=== PATIENT | female | born 1970 | race African-American/Black ===

== ENCOUNTER 2018-01-26 11:11 | Emergency (ER) | payer SELFPAY ==
[~2018-01-26] VITALS: Ht 149.9 cm; Wt 48.0 kg
[2018-01-26 11:30] VITALS: BP 132/58; PULSE 96; RESP 18; TEMP 98.5; O2SAT 100
[2018-01-26] MEDS ORDERED: FERR325T18 PO (11:57)
--- NOTE | 2018-01-26 12:45 | PD ---
HPI Chief Complaint: Cold / Flu Symptoms Time Seen by Provider: 11:56 Travel History International Travel<30 days: No Contact w/Intl Traveler<30days: No Traveled to known affect area: No History of Present Illness HPI Patient 47-year-old female presents emergency department for evaluation of fatigue and feeling hot. Denies any chest pain shortness breath abdominal pain nausea vomiting. States she was going to work today and got rained on this and the symptoms started. She denies any respiratory symptoms denies any cough congestion. Denies any dysuria vaginal discharge or vaginal bleeding. No history of diabetes or HIV. PFSH Past Medical History Anemia: Yes Reproductive: Yes (fibroid tumor) Influenza Vaccination: No ?: Not LMP: 01/26/18 Tubal Ligation: Yes Social History Alcohol Use: No Tobacco Use: No Substance Use: No Allergies-Medications (Allergen,Severity, Reaction): Coded Allergies: No Known Allergies (Unverified , 01/26/18) Reported Meds & Prescriptions Reported Meds & Active Scripts Active Reported Ferrous Sulfate 325 Mg (65 Mg Iron) Tablet 325 Mg PO DAILY Review of Systems Except as stated in HPI: all other systems reviewed are Neg Physical Exam Narrative GENERAL: Well-developed well-nourished no obvious appears well and nontoxic SKIN: Focused skin assessment warm/dry. No rash no HEAD: Atraumatic. Normocephalic. EYES: Pupils equal and round. No scleral icterus. No injection or drainage. ENT: No nasal bleeding or discharge. Mucous membranes pink and moist. TMs clear bilaterally, oropharynx clear moist NECK: Trachea midline. No JVD. CARDIOVASCULAR: Regular rate and rhythm. No murmur appreciated. RESPIRATORY: No accessory muscle use. Clear to auscultation. Breath sounds equal bilaterally. GASTROINTESTINAL: Abdomen soft, non-tender, nondistended. Hepatic and splenic margins not palpable. MUSCULOSKELETAL: No obvious deformities. No clubbing. No cyanosis. No edema. NEUROLOGICAL: Awake and alert. No obvious cranial nerve deficits. Motor grossly within normal limits. Normal speech. PSYCHIATRIC: Appropriate mood and affect; insight and judgment normal. Data Data Last Documented VS Vital Signs Date Time Temp Pulse Resp B/P (MAP) Pulse Ox O2 Delivery O2 Flow Rate FiO2 01/26/18 11:30 98.5 96 18 132/58 (82) 100 Orders Orders Chest, Pa & Lat (01/26/18 ) Ed Discharge Order (01/26/18 13:15) [facility] Medical Decision Making Medical Screen Exam Complete: Yes Emergency Medical Condition: Yes Differential Diagnosis Perimenopausal symptoms, hot flashes, influenza unlikely given the time of year , pneumonia, UTI unlikely given lack of symptoms per Narrative Course Patient room to the emergency department, she appears well in obvious distress. Chest x-ray negative, is no indication further workup of the patient at this time, she stable for discharge, discussed following up with her primary care physician in the [facility] Diagnosis Primary Impression: Viral syndrome Referrals: [facility] Med/Other Pt SpecificInfo: Prescription(s) given Disposition: DISCHARGE HOME Condition: Stable Aldo Karimi MD January 26, 2018 12:45
--- NOTE | 2018-01-26 13:11 | RADRPT ---
EXAM DATE: 01/26/2018 1:08 PM EDT AGE/SEX: 47 years / Female INDICATIONS: Cough. CLINICAL DATA: This is the patient's initial encounter. Patient reports that signs and symptoms have been present for 1 day and indicates a pain score of 9/10. MEDICAL/SURGICAL HISTORY: None. None. COMPARISON: No prior [place] exams available for comparison. FINDINGS: PA and lateral views of the chest demonstrate the lungs to be symmetrically aerated without evidence of mass, infiltrate or effusion. Bilateral nipple shadows are demonstrated. The cardiomediastinal con tours are unremarkable. Osseous structures are intact. CONCLUSION: No acute intrathoracic disease. Electronically signed by: Manish Chan MD 01/26/2018 1:10 PM EDT
== END 2018-01-26 14:12 | disposition home or self-care (01) ==
LOC: NEPD 11:11
DX: B34.9 Viral infection, unspecified (principal)
CPT/HCPCS: 71046; 99283

== ENCOUNTER 2018-01-27 10:55 | Inpatient (IN) | payer SELFPAY ==
[~2018-01-27] VITALS: Ht 149.9 cm; Wt 51.0 kg
[2018-01-27] VITALS (13 sets, daily range): BP systolic 110–138; BP diastolic 56–71; PULSE 66–94; RESP 12–20; TEMP 97.9–99.1; O2SAT 98–100
[~2018-01-27 10:55] MED LIST: FERR325T18 PO
[2018-01-27 11:43] LABS: AUTOMATED NEUTROPHIL # 0.8 TH/MM3 (1.8-7.7); BASOPHIL # 0.1 TH/MM3 (0-0.2); BASOPHIL % 5.2 % (0.0-2.0); EOSINOPHIL % 1.1 % (0.0-4.0); LYMPH % 46.1 % (9.0-44.0); MEAN CELL VOLUME 50.7 FL (80.0-100.0); MEAN CORPUSCULAR HEMOGLOBIN 12.9 PG (27.0-34.0); MONO % 10.5 % (0.0-8.0); MONOCYTE # 0.2 TH/MM3 (0-0.9); NEUT % 37.1 % (16.0-70.0); RED BLOOD COUNT 2.35 MIL/MM3 (4.00-5.30); RED CELL DISTRIBUTION WIDTH 28.7 % (11.6-17.2); WHITE BLOOD COUNT 2.1 TH/MM3 (4.0-11.0)
[2018-01-27 11:49] LABS: MEAN CORPUSCULAR HGB CONC 25.5 % (32.0-36.0)
[2018-01-27 11:55] LABS: HEMATOCRIT 11.9 % (35.0-46.0); MEAN PLATELET VOLUME 8.6 FL (7.0-11.0); PLATELET COUNT 79 TH/MM3 (150-450)
--- NOTE | 2018-01-27 12:07 | RADRPT ---
EXAM DATE: 01/27/2018 11:59 AM EDT AGE/SEX: 47 years / Female INDICATIONS: Sharp pain in mid chest on inspiration CLINICAL DATA: This is the patient's initial encounter. Patient reports that signs and symptoms have been present for 1 day and indicates a pain score of 2/10. MEDICAL/SURGICAL HISTORY: None. Hysterectomy. COMPARISON: [facility], CHEST PA & LAT, 01/26/2018. . FINDINGS: PA and lateral views of the chest demonstrate the lungs to be symmetrically aerated without evidence of mass, infiltrate or effusion. The cardiomediastinal contours are unremarkable. Scoliosis. Osseous structures are intact. CONCLUSION: No acute cardiopulmonary disease. Electronically signed by: Solomon Ascencio MD 01/27/2018 12:05 PM EDT
[2018-01-27] MEDS ORDERED: SODIUM CHLOR 0.9% 250 ML INJ 250 ML IV ONE ×2 (12:15→14:00)
[2018-01-27 12:16] LABS: BICARBONATE 22.4 MEQ/L (21.0-32.0); BLOOD UREA NITROGEN 8 MG/DL (7-18); CHLORIDE 111 MEQ/L (98-107); CREATININE 0.56 MG/DL (0.50-1.00); GLOMERULAR FILTRATION RATE 139 ML/MIN (>89); GLUCOSE,RANDOM 89 MG/DL (74-106); SODIUM (NA) 142 MEQ/L (136-145)
[2018-01-27 12:23] LABS: TROPONIN I LESS THAN 0.02 NG/ML (0.02-0.05)
--- NOTE | 2018-01-27 12:23 | PD ---
HPI Chief Complaint: Cold / Flu Symptoms Time Seen by Provider: 12:06 Travel History International Travel<30 days: No Contact w/Intl Traveler<30days: No Traveled to known affect area: No History of Present Illness HPI Patient 47-year-old female seen and examined by me yesterday for very vague complaints return to the emergency department for similar complaints today adding chest pain. She states that she is just been feeling very fatigued recently for the past day and a half or so. States he has a history of anemia. On further history patient states is similar symptoms happened to her about 5 years ago she was admitted to an outside facility was diagnosed with severe anemia and had to have CAT scan as well as HIV testing all of which were negative. She states she never had a bone marrow biopsy however. She denies any fevers denies any nausea vomiting abdominal pain. 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 She is unsure as to what the etiology behind the tumor was but from what she describes as possibly an ovarian cyst. States symptoms are moderate, for the past 2 days, constant, associated signs symptoms in context as abov. PFSH Past Medical History Anemia: Yes Reproductive: Yes (fibroid tumor) Tubal Ligation: Yes Social History Alcohol Use: No Tobacco Use: No Substance Use: No Allergies-Medications (Allergen,Severity, Reaction): Coded Allergies: No Known Allergies (Unverified , 01/26/18) Reported Meds & Prescriptions Reported Meds & Active Scripts Active Reported Ferrous Sulfate 325 Mg (65 Mg Iron) Tablet 325 Mg PO DAILY Review of Systems Except as stated in HPI: all other systems reviewed are Neg Physical Exam Narrative GENERAL: Well-developed well-nourished no obvious, thin SKIN: Focused skin assessment warm/dry. Dark complexion but there is some pallor of the nailbeds and conjunctival pallor. HEAD: Atraumatic. Normocephalic. EYES: Pupils equal and round. No scleral icterus. No injection or drainage. ENT: No nasal bleeding or discharge. Mucous membranes pink and moist. NECK: Trachea midline. No JVD. CARDIOVASCULAR: Regular rate and rhythm. No murmur appreciated. RESPIRATORY: No accessory muscle use. Clear to auscultation. Breath sounds equal bilaterally. GASTROINTESTINAL: Abdomen soft, non-tender, nondistended. Hepatic and splenic margins not palpable. MUSCULOSKELETAL: No obvious deformities. No clubbing. No cyanosis. No edema. NEUROLOGICAL: Awake and alert. No obvious cranial nerve deficits. Motor grossly within normal limits. Normal speech. PSYCHIATRIC: Appropriate mood and affect; insight and judgment normal. Data Data Last Documented VS Vital Signs Date Time Temp Pulse Resp B/P (MAP) Pulse Ox O2 Delivery O2 Flow Rate FiO2 01/27/18 13:02 100 Room Air 01/27/18 13:02 71 16 117/57 (77) 01/27/18 11:02 99.1 Orders Orders Electrocardiogram (01/27/18 11:19) Complete Blood Count With Diff (01/27/18 11:19) Basic Metabolic Panel (Bmp) (01/27/18 11:19) Ckmb (Isoenzyme) Profile (01/27/18 11:19) Troponin I (01/27/18 11:19) Iv Access Insert/Monitor (01/27/18 11:19) Ecg Monitoring (01/27/18 11:19) Oxygen Administration (01/27/18 11:19) Oximetry (01/27/18 11:19) Chest, Pa & Lat (01/27/18 11:19) Type And Screen (01/27/18 12:07) Red Blood Cells (Rbc) (01/27/18 12:07) Blood Product Administration (01/27/18 12:07) Sodium Chlor 0.9% 250 Ml Inj (Ns 250 Ml (01/27/18 12:15) Ct Abd/Pel W Iv Contrast(Rout) (01/27/18 ) Ct Thorax/ Chest W Iv Contrast (01/27/18 ) Isolation 08,20 (01/27/18 12:24) Equip, Isolation Cart (01/27/18 12:32) Retic Count (01/27/18 13:37) Hepatic Functional Panel (01/27/18 13:39) Admit Order (Ed Use Only) (01/27/18 ) Ondansetron Odt (Zofran Odt) (01/27/18 13:45) Admit To Inpatient (01/27/18 ) Code Status (01/27/18 13:38) Vital Signs (Adult) Q4H (01/27/18 13:38) Activity Oob Ad Danay (01/27/18 13:38) 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 / Telemetry .CONTINUOUS (01/27/18 13:38) Intake + Output EVERETTE.QSHIFT (01/27/18 13:38) Diet Heart Healthy (01/27/18 Lunch) Sodium Chloride 0.9% Flush (Ns Flush) (01/27/18 13:45) Sodium Chloride 0.9% Flush (Ns Flush) (01/27/18 14:00) Acetaminophen (Tylenol) (01/27/18 14:00) Metoclopramide Inj (Reglan Inj) (01/27/18 14:00) Resp Oxygen Galdino C Titrat 1-4 L (01/27/18 ) Pt Request For Service (01/27/18 13:38) Case Management Consult (01/27/18 13:38) Zolpidem (Ambien) (01/27/18 14:00) Scd Bilateral/Knee High EVERETTE.BID (01/27/18 13:38) Guillermo Bilateral/Knee High EVERETTE.QSHIFT (01/27/18 13:50) Acetaminophen (Tylenol) (01/27/18 14:00) Oxycodone-Acetamin 5-325 Mg (Percocet (01/27/18 14:00) Oxycodone-Acetamin 10-325 Mg (Percocet 1 (01/27/18 14:00) Naloxone Inj (Narcan Inj) (01/27/18 13:45) Docusate Sodium-Senna (Nevaeh-Colace) (01/27/18 21:00) Magnesium Hydroxide Liq (Milk Of Magnesi (01/27/18 13:45) Sennosides (Senokot) (01/27/18 14:00) Bisacodyl Supp (Dulcolax Supp) (01/27/18 14:00) Lactulose Liq (Lactulose Liq) (01/27/18 14:00) Inpatient Certification (01/27/18 ) Labs Laboratory Tests Test 01/27/18 11:30 White Blood Count 2.1 TH/MM3 Red Blood Count 2.35 MIL/MM3 Hemoglobin 3.0 GM/DL Hematocrit 11.9 % Mean Corpuscular Volume 50.7 FL Mean Corpuscular Hemoglobin 12.9 PG Mean Corpuscular Hemoglobin Concent 25.5 % Red Cell Distribution Width 28.7 % Platelet Count 79 TH/MM3 Mean Platelet Volume 8.6 FL Neutrophils (%) (Auto) 37.1 % Lymphocytes (%) (Auto) 46.1 % Monocytes (%) (Auto) 10.5 % Eosinophils (%) (Auto) 1.1 % Basophils (%) (Auto) 5.2 % Neutrophils # (Auto) 0.8 TH/MM3 Lymphocytes # (Auto) 1.0 TH/MM3 Monocytes # (Auto) 0.2 TH/MM3 Eosinophils # (Auto) 0.0 TH/MM3 Basophils # (Auto) 0.1 TH/MM3 CBC Comment AUTO DIFF Differential Total Cells Counted 100 Neutrophils % (Manual) 30 % Lymphocytes % 58 % Monocytes % 8 % Eosinophils % 1 % Basophils % 3 % Neutrophils # (Manual) 0.6 TH/MM3 Differential Comment FINAL DIFF MANUAL Platelet Estimate LOW Platelet Morphology Comment NORMAL Ovalocytes 1+ Reticulocyte Count 1.5 % Absolute Reticulocyte Count 36.7 MIL/L Blood Urea Nitrogen 8 MG/DL Creatinine 0.56 MG/DL Random Glucose 89 MG/DL Calcium Level 8.0 MG/DL Sodium Level 142 MEQ/L Potassium Level 3.9 MEQ/L Chloride Level 111 MEQ/L Carbon Dioxide Level 22.4 MEQ/L Anion Gap 9 MEQ/L Estimat Glomerular Filtration Rate 139 ML/MIN Total Bilirubin 0.4 MG/DL Direct Bilirubin 0.2 MG/DL Indirect Bilirubin 0.2 MG/DL Aspartate Amino Transf (AST/SGOT) 10 U/L Alanine Aminotransferase (ALT/SGPT) 12 U/L Alkaline Phosphatase 31 U/L Total Creatine Kinase 28 U/L Troponin I LESS THAN 0.02 NG/ML Total Protein 7.2 GM/DL Albumin 3.7 GM/DL [facility] Medical Decision Making Medical Screen Exam Complete: Yes Emergency Medical Condition: Yes Differential Diagnosis Anemia, leukopenia, thrombus cytopenia, pancytopenia, bone marrow failure, chronic iron loss anemia peer Narrative Course Patient room to the emergency department, patient had labs ordered as part of protocol labs in the waiting room. Showed pancytopenia with platelet count of 70, white blood cell count of 2, absolute neutrophil count of 800, also had hemoglobin of 3. Fecal occult testing was negative albeit there was not a whole lot of stool in the car. Patient also admits to me that she has a history of heavy periods. After discussing risk benefits, occasions alternatives she agreed for blood transfusion. Discussed with Dr. Reiber for admission he is agreeable. A CT of the chest abdomen and pelvis was ordered for screening for cancers. Last 24 hours Impressions Chest X-Ray 01/27/18 1119 Signed Impressions: CONCLUSION: No acute cardiopulmonary disease. Chest CT 01/27/18 0000 Signed Impressions: CONCLUSION: 1. Mild scoliosis. Incidental aberrant right subclavian artery. No acute findi ngs on chest CT. Abdomen/Pelvis CT 01/27/18 0000 Signed Impressions: CONCLUSION: 1. Markedly enlarged lobulated uterus measuring up to 17.8 cm in length most c haracteristic of a fibroid uterus. There is fluid in the vaginal cavity and tra ce free fluid. Diagnosis Primary Impression: Anemia Additional Impressions: Leukopenia Thrombocytopenia Admitting Information Admitting Physician Requests: Admit Condition: Aldo Yip MD January 27, 2018 12:23
[2018-01-27 12:25] LABS: BASOPHILS 3 % (0-2); LYMPHOCYTES 58 % (9-44); MONOCYTES 8 % (0-8); NEUTROPHIL # MANUAL DIFF 0.6 TH/MM3 (1.8-7.7); POLYS (SEG NEUTROPHILS) 30 % (16-70)
[2018-01-27 12:27] LABS: OVALOCYTES 1+ (NORMAL)
[2018-01-27] MEDS ORDERED: NALOXONE HCL 0.4 MG/ML AMP IV PUSH PRN (13:45)
[2018-01-27] MEDS ORDERED: ONDANSETRON ODT 4 MG TAB PO ONE (13:45)
[2018-01-27] MEDS ORDERED: SODIUM CHLORIDE 0.9% FLUSH 10 ML FLUSH IV FLUSH PRN (13:45)
[2018-01-27] MEDS ORDERED: MAGNESIUM HYDROXIDE SUSP 30 ML CUP PO PRN (13:45)
[2018-01-27 13:57] LABS: RETIC # 36.7 MIL/L (20.0-150.0); RETIC % 1.5 % (0.4-3.0)
[2018-01-27] MEDS ORDERED: METOCLOPRAMIDE HCL 10 MG/2 ML VIAL IV PUSH PRN (14:00)
[2018-01-27] MEDS ORDERED: ZOLPIDEM TARTRATE 5 MG TAB PO PRN (14:00)
[2018-01-27] MEDS ORDERED: MORPHINE SULFATE 4 MG/ML INJ IV PUSH PRN ×3 (14:00)
[2018-01-27] MEDS ORDERED: ACETAMINOPHEN 325 MG TAB PO PRN ×3 (14:00)
[2018-01-27] MEDS ORDERED: BISACODYL 10 MG SUPP RECTAL PRN (14:00)
[2018-01-27] MEDS ORDERED: LACTULOSE SYRUP 20 GM/30 ML CUP PO PRN (14:00)
[2018-01-27] MEDS ORDERED: ONDANSETRON ODT 4 MG TAB PO PRN (14:00)
[2018-01-27] MEDS ORDERED: SENNOSIDES 8.6 MG TAB PO PRN (14:00)
[2018-01-27] MEDS ORDERED: diphenhydrAMINE HCL 25 MG CAP PO PRN (14:00)
[2018-01-27] MEDS ORDERED: oxyCODONE/ACETAMINOPHEN 5 MG/325 MG TAB PO PRN (14:00)
[2018-01-27] MEDS ORDERED: oxyCODONE/ACETAMINOPHEN 10 MG/325 MG TAB PO PRN (14:00)
[2018-01-27] MEDS: SODIUM CHLORIDE 0.9% FLUSH 10 ML FLUSH IV FLUSH SCH ×2 (14:00→19:59)
[2018-01-27 14:06] LABS: ALBUMIN 3.7 GM/DL (3.4-5.0); DIRECT BILIRUBIN ADULT 0.2 MG/DL (0.0-0.2)
[2018-01-27 14:08] LABS: INDIRECT BILIRUBIN 0.2 MG/DL (0.0-0.8); TOTAL BILIRUBIN ADULT 0.4 MG/DL (0.2-1.0); TOTAL PROTEIN 7.2 GM/DL (6.4-8.2)
--- NOTE | 2018-01-27 15:00 | HHI.HP ---
[facility] No Primary Care Physician Admission Diagnosis Pancytopenia, Severe Diagnoses: (1) Leukopenia Diagnosis: Principal (2) Thrombocytopenia Diagnosis: Principal (3) Anemia Diagnosis: Principal Chief Complaint: Weakness and cold and flu symptoms Travel History International Travel<30 Days: No Contact w/Intl Traveler <30 Da: No Traveled to Known Affected Are: No History of Present Illness Patient is a 47-year-old -[place] female, Who was seen in the emergency department and found to have a hemoglobin of 3 will be transfused and will consult hematology oncology. Patient had Hemoccult of stool that was negative per ER physician. Patient denies any history other than heavy periods and some questionable history of possible ovarian cyst. Currently is not taking any medications other than maybe some iron States that her periods tend TO last 5 days and are heavy 4 out of the 5 days Review of Systems Constitutional: COMPLAINS OF: Fatigue, DENIES: Diaphoretic episodes, Fever, Weight gain, Weight loss, Chills, Dizziness, Change in appetite, Night Sweats Endocrine: COMPLAINS OF: Abnorml menstrual pattern, DENIES: Heat/cold intolerance, Polydipsia, Polyuria, Polyphagia Eyes: DENIES: Blurred vision, Diplopia, Eye inflammation, Eye pain, Vision loss , Photosensitivity, Double Vision Ears, nose, mouth, throat: DENIES: Tinnitus, Hearing loss, Vertigo, Nasal discharge, Oral lesions, Throat pain, Hoarseness, Ear Pain, Running Nose, Epistaxis, Sinus Pain, Toothache, Odynophagia Respiratory: DENIES: Apneas, Cough, Snoring, Wheezing, Hemoptysis, Sputum production, Shortness of breath Cardiovascular: DENIES: Chest pain, Palpitations, Syncope, Dyspnea on Exertion , PND, Lower Extremity Edema, Orthopnea Gastrointestinal: DENIES: Abdominal pain, Black stools, Bloody stools, Constipation, Diarrhea, Nausea, Vomiting, Difficulty Swallowing, Anorexia Genitourinary: COMPLAINS OF: Abnormal vaginal bleeding, DENIES: Dysmenorrhea, Dyspareunia, Sexual dysfunction, Urinary frequency, Urinary incontinence, Urgency, Hematuria, Dysuria, Nocturia, Vaginal discharge Musculoskeletal: COMPLAINS OF: Muscle aches, DENIES: Joint pain, Stiffness, Joint Swelling, Back pain, Neck pain Integumentary: DENIES: Abnormal pigmentation, Pruritus, Rash, Nail changes, Breast masses, Breast skin changes, Nipple discharge Hematologic/lymphatic: DENIES: Bruising, Lymphadenopathy Immunologic/allergic: DENIES: Eczema, Urticaria Neurologic: DENIES: Abnormal gait, Headache, Localized weakness, Paresthesias, Seizures, Speech Problems, Tremor, Poor Balance Psychiatric: DENIES: Anxiety, Confusion, Mood changes, Depression, Hallucinations, Agitation, Suicidal Ideation, Homicidal Ideation, Delusions Except as stated in HPI: all other systems reviewed are Neg Past Family Social History Past Medical History History of tubal ligation Possible ovarian cyst/fibroid tumors Homeless Past Surgical History Tubal ligation Reported Medications Reported Meds & Active Scripts Active Reported Ferrous Sulfate 325 Mg (65 Mg Iron) Tablet 325 Mg PO DAILY Allergies: Coded Allergies: No Known Allergies (Unverified , 01/26/18) Active Ordered Medications Current Medications Sodium Chloride 250 ml @ 15 mls/hr ONCE ONCE IV ; Start 01/27/18 at 12:15; Stop 01/28/18 at 04:54 Ondansetron HCl (Zofran Odt) 4 mg ONCE ONCE PO Last administered on at 13:51; Start 01/27/18 at 13:45; Stop 01/27/18 at 13:46; Status DC Sodium Chloride (NS Flush) 2 ml UNSCH PRN IV FLUSH FLUSH AFTER USING IV ACCESS ; Start 01/27/18 at 13:45 Sodium Chloride (NS Flush) 2 ml BID IV FLUSH ; Start 01/27/18 at 14:00 Acetaminophen (Tylenol) 650 mg Q4H PRN PO TEMP > 100.4; Start 01/27/18 at 14:00 Ondansetron HCl (Zofran Odt) 4 mg Q6H PRN PO NAUSEA OR VOMITING; Start at 14:00 Metoclopramide HCl (Reglan Inj) 5 mg Q6H PRN IV PUSH SEE LABEL COMMENTS; Start 01/27/18 at 14:00 Zolpidem Tartrate (Ambien) 5 mg HS PRN PO INSOMNIA; Start 01/27/18 at 14:00 Acetaminophen (Tylenol) 650 mg Q6H PRN PO PAIN SCALE 1 TO 2; Start 01/27/18 at 14:00 Oxycodone/ Acetaminophen (Percocet 5-325 Mg) 1 tab Q6H PRN PO PAIN SCALE 3 TO 5; Start 01/27/18 at 14:00 Oxycodone/ Acetaminophen (Percocet 10-325 Mg) 1 tab Q6H PRN PO PAIN SCALE 6 TO 10; Start 01/27/18 at 14:00 Morphine Sulfate (Morphine Inj) 2 mg Q3H PRN IV PUSH Pain 3-5; if unable to take PO; Start 01/27/18 at 14:00 Morphine Sulfate (Morphine Inj) 4 mg Q3H PRN IV PUSH Pain 6-10;if unable to take PO; Start 01/27/18 at 14:00 Morphine Sulfate (Morphine Inj) 4 mg Q3H PRN IV PUSH BREAKTHROUGH PAIN; Start 01/27/18 at 14:00 Naloxone HCl (Narcan Inj) 0.4 mg UNSCH PRN IV PUSH SEE LABEL COMMENTS; Start at 13:45 Senna/Docusate Sodium (Nevaeh-Colace) 1 tab BID PO ; Start 01/27/18 at 21:00 Magnesium Hydroxide (Milk Of Magnesia Liq) 30 ml Q12H PRN PO Mild constipation ; Start 01/27/18 at 13:45 Sennosides (Senokot) 17.2 mg Q12H PRN PO Moderate constipation; Start 01/27/18 at 14:00 Bisacodyl (Dulcolax Supp) 10 mg DAILY PRN RECTAL SEVERE CONSITIPATION; Start at 14:00 Lactulose (Lactulose Liq) 30 ml DAILY PRN PO SEVERE CONSITIPATION; Start at 14:00 Sodium Chloride 250 ml @ 15 mls/hr ONCE ONCE IV ; Start 01/27/18 at 14:00; Stop 01/28/18 at 06:39 Acetaminophen (Tylenol) 650 mg Q4H PRN PO SEE LABEL COMMENTS; Start 01/27/18 at 14:00 Diphenhydramine HCl (Benadryl) 25 mg Q4H PRN PO SEE LABEL COMMENTS; Start 01/27 at 14:00 Family History Father had lung cancer with bone metastasis is She states mother did not have any high blood pressure or diabetes or hypertension or cholesterol Social History Denies any tobacco denies any illicits denies any alcohol Physical Exam Vital Signs Vital Signs Date Time Temp Pulse Resp B/P (MAP) Pulse Ox O2 Delivery O2 Flow Rate FiO2 01/27/18 14:29 98.7 75 17 111/61 100 01/27/18 14:08 98.8 76 16 113/56 100 01/27/18 13:52 85 12 117/57 (77) 98 Room Air 01/27/18 13:48 99 21 01/27/18 13:02 100 Room Air 01/27/18 13:02 71 16 117/57 (77) 100 Room Air 01/27/18 11:02 99.1 94 20 125/70 (88) 99 Physical Exam GENERAL: This is a well-nourished, well-developed patient, in no apparent distress. SKIN: No rashes, ecchymoses or lesions. Cool and dry. HEAD: Atraumatic. Normocephalic. No temporal or scalp tenderness. EYES: Pupils equal round and reactive. Extraocular motions intact. No scleral icterus. No injection or drainage. Conjunctiva slightly pale ENT: Nose without bleeding, purulent drainage or septal hematoma. Throat without erythema, tonsillar hypertrophy or exudate. Uvula midline. Airway patent. NECK: Trachea midline. No JVD or lymphadenopathy. Supple, nontender, no meningeal signs. CARDIOVASCULAR: Regular rate and rhythm without murmurs, gallops, or rubs. S1- S2 no S3 or S4 RESPIRATORY: Clear to auscultation. Breath sounds equal bilaterally. No wheezes , rales, or rhonchi. GASTROINTESTINAL: Abdomen soft, non-tender, nondistended. No hepato-splenomegaly , or palpable masses. No guarding. MUSCULOSKELETAL: Extremities without clubbing, cyanosis, or edema. No joint tenderness, effusion, or edema noted. No calf tenderness. Negative Homans sign bilaterally. NEUROLOGICAL: Awake and alert. Cranial nerves II through XII intact. Motor and sensory grossly within normal limits. Five out of 5 muscle strength in all muscle groups. Normal speech. Insight and judgment is good Mood behaviors appropriate Laboratory Laboratory Tests Test 01/27/18 11:30 White Blood Count 2.1 Red Blood Count 2.35 Hemoglobin 3.0 Hematocrit 11.9 Mean Corpuscular Volume 50.7 Mean Corpuscular Hemoglobin 12.9 Mean Corpuscular Hemoglobin Concent 25.5 Red Cell Distribution Width 28.7 Platelet Count 79 Mean Platelet Volume 8.6 Neutrophils (%) (Auto) 37.1 Lymphocytes (%) (Auto) 46.1 Monocytes (%) (Auto) 10.5 Eosinophils (%) (Auto) 1.1 Basophils (%) (Auto) 5.2 Neutrophils # (Auto) 0.8 Lymphocytes # (Auto) 1.0 Monocytes # (Auto) 0.2 Eosinophils # (Auto) 0.0 Basophils # (Auto) 0.1 CBC Comment AUTO DIFF Differential Total Cells Counted 100 Neutrophils % (Manual) 30 Lymphocytes % 58 Monocytes % 8 Eosinophils % 1 Basophils % 3 Neutrophils # (Manual) 0.6 Differential Comment FINAL DIFF MANUAL Platelet Estimate LOW Platelet Morphology Comment NORMAL Ovalocytes 1+ Reticulocyte Count 1.5 Absolute Reticulocyte Count 36.7 Blood Urea Nitrogen 8 Creatinine 0.56 Random Glucose 89 Calcium Level 8.0 Sodium Level 142 Potassium Level 3.9 Chloride Level 111 Carbon Dioxide Level 22.4 Anion Gap 9 Estimat Glomerular Filtration Rate 139 Total Bilirubin 0.4 Direct Bilirubin 0.2 Indirect Bilirubin 0.2 Aspartate Amino Transf (AST/SGOT) 10 Alanine Aminotransferase (ALT/SGPT) 12 Alkaline Phosphatase 31 Total Creatine Kinase 28 Troponin I LESS THAN 0.02 Total Protein 7.2 Albumin 3.7 Result Diagram: 01/27/18 1130 01/27/18 1130 Imaging Last Impressions Chest X-Ray 01/27/18 1119 Signed Impressions: CONCLUSION: No acute cardiopulmonary disease. Caprini VTE Risk Assessment Caprini VTE Risk Assessment: No/Low Risk (score <= 1) Caprini Risk Assessment Model Point Value = 1 Point Value = 2 Point Value = 3 Point Value = 5 Age 41-60 Minor surgery BMI > 25 kg/m2 Swollen legs Varicose veins or History of unexplained or recurrent spontaneous Oral contraceptives or hormone replacement Sepsis (< 1 month) Serious lung disease, including pneumonia (< 1 month) Abnormal pulmonary function Acute myocardial infarction Congestive heart failure (< 1 month) History of inflammatory bowel disease Medical patient at bed rest Age 61-74 Arthroscopic surgery Major open surgery (> 45 min) Laparoscopic surgery (> 45 min) Malignancy Confined to bed (> 72 hours) Immobilizing plaster cast Central venous access Age >= 75 History of VTE Family history of VTE Factor V Leiden Prothrombin [id number] Lupus anticoagulant Anticardiolipin antibodies Elevated serum homocysteine Heparin-induced thrombocytopenia Other congenital or acquired thrombophilia Stroke (< 1 month) Elective arthroplasty Hip, pelvis, or leg fracture Acute spinal cord injury (< 1 month) Prophylaxis Regimen Total Risk Factor Score Risk Level Prophylaxis Regimen 0-1 Low Early ambulation 2 Moderate Order ONE of the following: *Sequential Compression Device (SCD) *Heparin 5000 units SQ BID 3-4 Higher Order ONE of the following medications: *Heparin 5000 units SQ TID *Enoxaparin/Lovenox 40 mg SQ daily (WT < 150 kg, CrCl > 30 mL/min) *Enoxaparin/Lovenox 30 mg SQ daily (WT < 150 kg, CrCl > 10-29 mL/min) *Enoxaparin/Lovenox 30 mg SQ BID (WT < 150 kg, CrCl > 30 mL/min) AND/OR *Sequential Compression Device (SCD) 5 or more Highest Order ONE of the following medications: *Heparin 5000 units SQ TID (Preferred with Epidurals) *Enoxaparin/Lovenox 40 mg SQ daily (WT < 150 kg, CrCl > 30 mL/min) *Enoxaparin/Lovenox 30 mg SQ daily (WT < 150 kg, CrCl > 10-29 mL/min) *Enoxaparin/Lovenox 30 mg SQ BID (WT < 150 kg, CrCl > 30 mL/min) AND *Sequential Compression Device (SCD) Assessment and Plan Assessment and Plan Severe symptomatic anemia with hemoglobin of 3 will transfuse 5 units of packed red blood cells and consult hematology We will more than likely need a bone marrow biopsy Thrombocytopenia again will probably need a bone marrow biopsy Leukopenia will probably need a bone marrow biopsy Dysfunctional uterine bleeding but more than likely will need a bone marrow biopsy Patient has heavy periods lasting 4-1/2-5 days History of tubal ligation History of possible fibroid tumors We will get a reticulocyte count Code Status FULL CODE Discussed Condition With ER PHYSICIAN AND PATIENT AND RN Physician Certification 2 Midnight Certification Type: Admission for Inpatient Services Order for Inpatient Services The services are ordered in accordance with Medicare regulations or non- Medicare payer requirements, as applicable. In the case of services not specified as inpatient-only, they are appropriately provided as inpatient services in accordance with the 2-midnight benchmark. Estimated LOS (days): 3 days is the estimated time the patient will need to remain in the hospital, assuming treatment plan goals are met and no additional complications. Post-Hospital Plan: Not yet determined Lázaro Ramos DO January 27, 2018 15:00
[2018-01-27] MEDS ORDERED: IOHEXOL 350 MG/ML 10 ML VIAL (for RAD DIAG) IVCONTRAST ONE (15:03)
--- NOTE | 2018-01-27 15:11 | RADRPT ---
EXAM DATE: 01/27/2018 3:01 PM EDT AGE/SEX: 47 years / Female INDICATIONS: Abdominal pain CLINICAL DATA: This is the patient's initial encounter. Patient reports that signs and symptoms have been present for 1 day and indicates a pain score of 6/10. MEDICAL/SURGICAL HISTORY: Anemia. Fibroid tumor Tubal ligation. ORAL CONTRAST: No oral contrast ingested. RADIATION DOSE: 5.10 CTDI (mGy) ; Combined studies COMPARISON: No prior [place] exams available for comparison. TECHNIQUE: Multiple contiguous axial images were obtained through the abdomen and pelvis following b olus infusion of 76 ml Omnipaque 350 (iohexol) nonionic water-soluble contrast as a cumulative dose for multiple exams. No oral contrast ingested. Using automated exposure control and adjustment of t he mA and/or kV according to patient size, the radiation dose was kept as low as reasonably achievabl e to obtain optimal diagnostic quality images. FINDINGS: Lung bases are clear. There is a massively enlarged uterus measuring up to 17.8 x 12.6 cm most charac teristic of fibroids. Several scattered calcifications present and there is fluid attenuation in the endometrial cavity. There is also some fluid in the vagina. Trace free fluid. No acute findings in the liver, spleen, adrenals, kidneys or pancreas. Tiny bilateral renal cysts. No acute bony abnormalities. Sclerotic lesion at L3 on the right probably represents a bone island. CONCLUSION: 1. Markedly enlarged lobulated uterus measuring up to 17.8 cm in length most characteristic of a fib roid uterus. There is fluid in the vaginal cavity and trace free fluid. Electronically signed by: Vincent Macias MD 01/27/2018 3:10 PM EDT
--- NOTE | 2018-01-27 15:14 | RADRPT ---
EXAM DATE: 01/27/2018 3:01 PM EDT AGE/SEX: 47 years / Female INDICATIONS: Chest pain, cough CLINICAL DATA: This is the patient's initial encounter. Patient reports that signs and symptoms have been present for 1 day and indicates a pain score of 10/10. MEDICAL/SURGICAL HISTORY: Anemia. Fibroid tumor Tubal ligation. RADIATION DOSE: 5.10 CTDI (mGy) ; Combined studies COMPARISON: No prior [place] exams available for comparison. TECHNIQUE: Multiple contiguous axial images were obtained through the chest during bolus infusion of 74 ml Omnipaque 350 (iohexol) nonionic water-soluble contrast as a cumulative dose for multiple exa ms. Images were obtained in suspended respiration using multiple row detector helical technique. U sing automated exposure control and adjustment of the mA and/or kV according to patient size, radiati on dose was kept as low as reasonably achievable to obtain optimal diagnostic quality images. FINDINGS: No lung consolidation or mass. No pleural or pericardial effusion. There is no hilar, mediastinal or axillary adenopathy. Mild scoliosis. No acute findings in the upper abdomen. CONCLUSION: 1. Mild scoliosis. Incidental aberrant right subclavian artery. No acute findings on chest CT. Electronically signed by: Vincent Macias MD 01/27/2018 3:12 PM EDT
[2018-01-27] MEDS: DOCUSATE SODIUM 50 MG/SENNA 8.6 MG TAB PO SCH (19:59)
--- NOTE | 2018-01-27 20:01 | PD.CONS ---
HPI Chief Complaint Heavy menstrual flow, weakness Date Seen: January 27, 2018 Time Seen: 19:40 Travel History International Travel<30 Days: No Contact w/Intl Traveler<30Days: No Known Affected Area: No History of Present Illness HPI Patient is a 47-year-old black female para 3 status post tubal ligation in the past has a 10 year history of abnormal uterine bleeding with heavy periods noted each month cycles are once a month but they are very heavy using 8-10 pads a day. 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 Patient is recently moved to [facility] as she is originally from the [facility] and there had had trouble getting insurance to cover any surgical approach to her tumor in her tummy, and currently she has no insurance. Her CT scan done here shows large fibroid uterus that is at least 17 cm in size;, her LMP started 5 days ago and is starting to slow down Para: 3 : 3 Last Menstrual Period: January 23, 2018 History Past Medical History Narrative Medical 10 year history of abnormal uterine bleeding with hypermenorrhea resulting in anemia and she said she has had multiple blood transfusions in the past when she was in the [facility], also 10 year history of having fibroid uterus but had no insurance or way to get coverage to get it removed Obstetric History Obstetric History 3 vaginal deliveries and a tubal ligation Past Surgical History Narrative Surgical Tubal ligation Social History Alcohol Use: No Tobacco Use: No Substance Abuse: No Allergies-Medications (Allergen,Severity, Reaction): Coded Allergies: No Known Allergies (Unverified , 01/26/18) Home Meds Reported Medications Ferrous Sulfate (Ferrous Sulfate) 325 Mg (65 Mg Iron) Tablet, 325 MG PO DAILY for Nutritional Supplement, #30 TAB 0 Refills 01/26/18 Review of Systems General / Constitutional: No: Fever, Weight Gain, Chills, Other Eyes: No: Diploplia, Blurred Vision, Visual changes, Pain, Photophobia HENT: Lightheadedness, No: Headaches, Vertigo Cardiovascular: No: Irregular Rhythm, Chest Pain or Discomfort, Palpitations, Tachycardia, Syncope, Varicosities, Edema, Cyanosis Respiratory: No: Cough, Short of Breath, Other Gastrointestinal: No: Nausea, Vomiting, Diarrhea Genitourinary: No: Decreased Urinary Output, Oliguria Musculoskeletal: Limited ROM, Weakness, No: Cramping, Edema, Pain Skin: No Rash, No Itching, No Dryness, No Lumps, No Change in Pigmentation, No Change in Nails, No Alopecia, No Lesions Neurologic: No: Weakness, Dizziness, Syncope, Focal Abnormalities, Coordination Problem, Headache, Slurred Speech, Seizures Psychiatric: No: Depression, Suicidal Ideations, Homicidal Ideation Endocrine: No: Heat Intolerance, Cold Intolerance, Polydipsia, Polyuria, Other Physical Exam Vital Signs Date Time Temp Pulse Resp B/P (MAP) Pulse Ox O2 Delivery O2 Flow Rate FiO2 01/27/18 18:15 98.8 72 16 138/71 100 01/27/18 17:59 98.8 70 18 127/70 100 01/27/18 16:00 97.9 90 15 124/57 (79) 100 01/27/18 15:04 01/27/18 14:29 98.7 75 17 111/61 100 01/27/18 14:08 98.8 76 16 113/56 100 01/27/18 13:52 85 12 117/57 (77) 98 Room Air 01/27/18 13:48 99 21 01/27/18 13:02 100 Room Air 01/27/18 13:02 71 16 117/57 (77) 100 Room Air 01/27/18 11:02 99.1 94 20 125/70 (88) 99 Narrative GENERAL: Well-nourished, well-developed patient. SKIN: Warm and dry. HEAD: Normocephalic and atraumatic. EYES: No scleral icterus. No injection or drainage. ENT: No nasal drainage noted. Mucous membranes pink. Airway patent. NECK: Supple, trachea midline. No JVD. CARDIOVASCULAR: Regular rate and rhythm without murmurs, gallops, or rubs. RESPIRATORY: Breath sounds equal bilaterally. No accessory muscle use. BREASTS: Bilateral exam showed no masses , no retractions, no nipple discharge. ABDOMEN/GI: Abdomen soft, non-tender, bowel sounds present, no rebound, no guarding , is a mass palpable below the umbilicus and then filling the pelvis GENITOURINARY: External Genitalia: intact and normal in appearance Normal vagina only minimal amount of blood in the vaginal vault, on the exam glove she has scanty blood present, and no sign of bleeding actively, her pad was only about 1/4-1/3 stained Cervix: [Posterior with no cervical motion tenderness and palpates as normal On bimanual exam there is approximately 18-20 week size uterine fibroids with the bulk of the mass on the right side going almost to the sidewall, through the vagina you can feel smaller fibroids indenting the vaginal vault that are golfball to tennis ball size, cannot palpate adnexa EXTREMITIES: No cyanosis or edema. thin BACK: Nontender without obvious deformity. No CVA tenderness. NEUROLOGICAL: Awake and alert. Motor and sensory grossly within normal limits. Five out of 5 muscle strength in all muscle groups. Normal speech. Data Data Orders Orders Electrocardiogram (01/27/18 11:19) Complete Blood Count With Diff (01/27/18 11:19) Basic Metabolic Panel (Bmp) (01/27/18 11:19) Ckmb (Isoenzyme) Profile (01/27/18 11:19) Troponin I (01/27/18 11:19) Iv Access Insert/Monitor (01/27/18 11:19) Ecg Monitoring (01/27/18 11:19) Oxygen Administration (01/27/18 11:19) Oximetry (01/27/18 11:19) Chest, Pa & Lat (01/27/18 11:19) Type And Screen (01/27/18 12:07) Red Blood Cells (Rbc) (01/27/18 12:07) Blood Product Administration (01/27/18 12:07) Sodium Chlor 0.9% 250 Ml Inj (Ns 250 Ml (01/27/18 12:15) Ct Abd/Pel W Iv Contrast(Rout) (01/27/18 ) Ct Thorax/ Chest W Iv Contrast (01/27/18 ) Isolation 08,20 (01/27/18 12:24) Equip, Isolation Cart (01/27/18 12:32) Retic Count (01/27/18 13:37) Hepatic Functional Panel (01/27/18 13:39) Admit Order (Ed Use Only) (01/27/18 ) Ondansetron Odt (Zofran Odt) (01/27/18 13:45) Admit To Inpatient (01/27/18 ) Code Status (01/27/18 13:38) Vital Signs (Adult) Q4H (01/27/18 13:38) Activity Oob Ad Danay (01/27/18 13:38) Curing Room Supervisor / Telemetry .CONTINUOUS (01/27/18 13:38) Intake + Output EVERETTE.QSHIFT (01/27/18 13:38) Diet Heart Healthy (01/27/18 Lunch) Sodium Chloride 0.9% Flush (Ns Flush) (01/27/18 13:45) Sodium Chloride 0.9% Flush (Ns Flush) (01/27/18 14:00) Acetaminophen (Tylenol) (01/27/18 14:00) Metoclopramide Inj (Reglan Inj) (01/27/18 14:00) Resp Oxygen Galdino C Titrat 1-4 L (01/27/18 ) Pt Request For Service (01/27/18 13:38) Case Management Consult (01/27/18 13:38) Zolpidem (Ambien) (01/27/18 14:00) Scd Bilateral/Knee High EVERETTE.BID (01/27/18 13:38) Guillermo Bilateral/Knee High EVERETTE.QSHIFT (01/27/18 13:50) Acetaminophen (Tylenol) (01/27/18 14:00) Oxycodone-Acetamin 5-325 Mg (Percocet (01/27/18 14:00) Oxycodone-Acetamin 10-325 Mg (Percocet 1 (01/27/18 14:00) Naloxone Inj (Narcan Inj) (01/27/18 13:45) Docusate Sodium-Senna (Nevaeh-Colace) (01/27/18 21:00) Magnesium Hydroxide Liq (Milk Of Magnesi (01/27/18 13:45) Sennosides (Senokot) (01/27/18 14:00) Bisacodyl Supp (Dulcolax Supp) (01/27/18 14:00) Lactulose Liq (Lactulose Liq) (01/27/18 14:00) Inpatient Certification (01/27/18 ) Consult Hematology (01/27/18 ) Red Blood Cells (Rbc) (01/27/18 13:47) Blood Product Administration .UPON TRANSFUSION (01/27/18 13:47) Sodium Chlor 0.9% 250 Ml Inj (Ns 250 Ml (01/27/18 14:00) Acetaminophen (Tylenol) (01/27/18 14:00) Diphenhydramine (Benadryl) (01/27/18 14:00) Morphine Inj (Morphine Inj) (01/27/18 14:00) Morphine Inj (Morphine Inj) (01/27/18 14:00) Morphine Inj (Morphine Inj) (01/27/18 14:00) (Hub Use Only)Inp Phy Cons/Ref (01/27/18 ) Ondansetron Odt (Zofran Odt) (01/27/18 14:00) Complement C3 (01/27/18 14:55) Complement C4 (01/27/18 14:55) Homocysteine (01/27/18 14:55) Methylmalonic Acid (Mma) (01/27/18 14:55) Intrinsic Factor Blocking Auto (01/27/18 14:55) Parietal Cell Total Autoabs (01/27/18 14:55) Vitamin B12 (01/27/18 14:55) Folate, Serum (01/27/18 14:55) Rbc Folate (01/27/18 14:55) Ferritin (01/27/18 14:55) Iron/Tibc Profile (01/27/18 14:55) Erythropoietin (Epo) (01/27/18 14:55) Haptoglobin (01/27/18 14:55) Ldh Serum (01/27/18 14:55) Protein Electrophoresis Serum (01/27/18 14:55) Kellee Screen (01/27/18 14:55) Rheumatoid Screen/Titer (Rf) (01/27/18 14:55) Westergren Sedimentation Rate (01/27/18 14:55) C-Reactive Protein (Crp) (01/27/18 14:55) Direct Esperanza (01/27/18 14:55) Invasive Rad Dept Consult (01/27/18 ) Bone Marrow Flow Cytometry (01/27/18 14:57) Bone Marrow Phys Prep (01/27/18 14:57) Chromosome Bone Marrow (01/27/18 14:57) Iohexol 350 Inj (Omnipaque 350 Inj) (01/27/18 15:03) Physician Name Changes (01/27/18 ) Consult Gynecology (01/27/18 ) Complete Blood Count With Diff (01/28/18 06:00) Complete Blood Count With Diff (01/29/18 16:57) (Hub Use Only)Inp Phy Cons/Ref (01/27/18 ) Labs Laboratory Tests Test 01/27/18 11:30 White Blood Count 2.1 Red Blood Count 2.35 Hemoglobin 3.0 Hematocrit 11.9 Mean Corpuscular Volume 50.7 Mean Corpuscular Hemoglobin 12.9 Mean Corpuscular Hemoglobin Concent 25.5 Red Cell Distribution Width 28.7 Platelet Count 79 Mean Platelet Volume 8.6 Neutrophils (%) (Auto) 37.1 Lymphocytes (%) (Auto) 46.1 Monocytes (%) (Auto) 10.5 Eosinophils (%) (Auto) 1.1 Basophils (%) (Auto) 5.2 Neutrophils # (Auto) 0.8 Lymphocytes # (Auto) 1.0 Monocytes # (Auto) 0.2 Eosinophils # (Auto) 0.0 Basophils # (Auto) 0.1 CBC Comment AUTO DIFF Differential Total Cells Counted 100 Neutrophils % (Manual) 30 Lymphocytes % 58 Monocytes % 8 Eosinophils % 1 Basophils % 3 Neutrophils # (Manual) 0.6 Differential Comment FINAL DIFF MANUAL Platelet Estimate LOW Platelet Morphology Comment NORMAL Ovalocytes 1+ Reticulocyte Count 1.5 Absolute Reticulocyte Count 36.7 Blood Urea Nitrogen 8 Creatinine 0.56 Random Glucose 89 Calcium Level 8.0 Sodium Level 142 Potassium Level 3.9 Chloride Level 111 Carbon Dioxide Level 22.4 Anion Gap 9 Estimat Glomerular Filtration Rate 139 Total Bilirubin 0.4 Direct Bilirubin 0.2 Indirect Bilirubin 0.2 Aspartate Amino Transf (AST/SGOT) 10 Alanine Aminotransferase (ALT/SGPT) 12 Alkaline Phosphatase 31 Total Creatine Kinase 28 Troponin I LESS THAN 0.02 Total Protein 7.2 Albumin 3.7 MDM Interpretation(s) 47-year-old black female para 3 with 20 week size uterine fibroids that are symptomatic with heavy menstrual flow each month and has had this problem for 10 years. Her hemoglobin was 3, hematocrit 11.9, white blood cell count 2.0, and platelet count 79,000 these numbers are consistent with pancytopenia across the board bone marrow suppression that is likely exacerbating the amount of menstrual bleeding she has Plan Plan for the patient to continue to get the blood that she is receiving now she is getting a 5 unit transfusion, Hem onc consult to see if a bone marrow biopsy is indicated. Her bleeding is not heavy at this point just barely some blood noted on the exam Glove per vagina so no immediate therapies needed to decrease her blood flow at this moment if her bleeding increases would give tranexamic acid either orally or IV., 1300 mg orally twice daily or 1 gram a tranexamic acid IV also IV Premarin could be used at some point if needed to decreased bleeding. There is no question that the definitive therapy for her is needed and that is a total abdominal hysterectomy bilateral salpingo- oophorectomy is just getting the funds/insurance to be able to do that. Admitting diagnosis: Pancytopenia, Severe Diagnosis: Fibroid uterus, anemia, hypermenorrhea Condition: Jayme Bustillo II, MD January 27, 2018 20:01
--- NOTE | 2018-01-27 20:02 | MB ---
cc: Tay Tillman MD DATE: 01/27/2018 REASON FOR CONSULTATION: 47-year-old female presenting with a hemoglobin of 3, white count 2100, platelet count 79,000, MCV of 50, pelvic mass and excessive uterine bleeding. PATIENT PROFILE: The patient is a 47-year-old black female. She is single. She was once and is . She has 3 children, 2 sons and a daughter. She has grandchildren. She was born in [place], [place]. She moved to [place] in October 2017. She wanted to live in a different environment. She unfortunately does not have a home and during the past month has been residing in a fci. 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 She is trying to save money so she can have a place of residence. She does not smoke. She does not drink and in the past alcohol intake was minimal. She does not use IV drugs. She does not in fact use any drugs. HISTORY OF PRESENT ILLNESS: The patient is a 47-year-old female who tells me that she has been anemic since 2007. She remembers being told that she had iron deficiency anemia from heavy menstrual bleeding. She was also told that she had a tumor in the pelvis, which was a fibroid. Her bleeding remains excessive. She bleeds for 5 days every 28 days and uses approximately 24 pads per day. She has had no money and no insurance. She has never been treated for her menstrual bleeding. She still continues to bleed on a regular basis. She has been taking iron sulfate 325 mg one pill twice a day for the past 10 years. Her current hospitalization occurred because she felt weak, short of breath, had chest pain and lightheadedness. She went to the emergency room on 01/26/2018 and had a chest x-ray showing no acute intrathoracic disease. She returned the following day with similar complaints and this resulted in a more extensive workup. A CBC and platelet count was done today. Hemoglobin 3, hematocrit 11.9, white count 2100, platelets 79,000. She has 37% neutrophils and 46% lymphocytes, 10% monocytes. The absolute manual neutrophil count is 600. There are no early forms present. She is unaware of having had a low white count or low platelet count in the past. There is no history of an autoimmune disorder or splenomegaly. Since admission, she had a CAT scan of the abdomen and pelvis and was found to have a markedly enlarged lobulated uterus measuring up to 17.8 cm in length, characteristic of a fibroid. A CT scan of the chest shows mild scoliosis and an incidental aberrant right subclavian artery. Additional laboratory studies include a reticulocyte count of 1.5%, with total reticulocyte count of 36. Electrolytes, BUN and creatinine, liver function tests are normal. Total bilirubin is 0.4. PAST SURGICAL HISTORY: Tubal ligation. PAST MEDICAL HISTORY: 1. History of excessive uterine bleeding and iron deficiency anemia dating back to 2007. 2. Uterine fibroid. MEDICINES PRIOR TO ADMISSION: 1. Iron sulfate 325 mg p.o. b.i.d. 2. Occasional ibuprofen for pain. ALLERGIES: SHE HAS NO ALLERGIES. FAMILY HISTORY: Mother is living. Father at age 69 of lung cancer and smoked. She has four brothers who are well and a sister who is well. There is no family history of anemia. REVIEW OF SYSTEMS: No change in vision or hearing. During the past 48 hours, she has had mild chest pain. She has had mild exertional shortness of breath. She has occasional pain in the lower pelvic area. There is no melena, hematochezia, hematemesis. She tells me that her stool was tested for blood and none was found. I cannot find the stool Hemoccult on the chart. There are no musculoskeletal problems. No neurologic problems. No skin problems. PHYSICAL EXAMINATION: GENERAL: Reveals a well-appearing female in no distress. VITAL SIGNS: Temperature is 98.7, pulse is 80, respiration rate is 17, blood pressure 110/60, afebrile, O2 saturation 100%. HEENT: Head is normocephalic. Sclerae and conjunctivae are unremarkable. Oropharynx, she has hypertrophy of the gums. BREASTS: Show cystic changes in the upper outer quadrants bilaterally, which are symmetrical. No dominant mass. HEART: Regular rhythm, 1/6 systolic murmur. LUNGS: Clear, without rales, wheezes or rhonchi. ABDOMEN: Soft. No hepatosplenomegaly. There is a huge mass in the right side of the abdomen extending up as far as the umbilical area, it is mildly tender. EXTREMITIES: No edema. MUSCULOSKELETAL: No bone pain. NEUROLOGIC: No weakness. SKIN: Unremarkable. Cognition and affect normal. ASSESSMENT AND PLAN: 1. I believe the patient has iron deficiency anemia secondary to menstrual bleeding. Her hemoglobin is 3, her mean corpuscular volume is 50. She indicates that she was not born anemic. Plan, iron studies are pending. She is being transfused 3 units of packed cells. Following this, I would be inclined to give her IV iron, as she clearly bleeds at a rate faster than she is able to compensate using oral iron. It appears that her major contributor to the anemia is menstrual blood loss and iron deficiency. She has a huge uterine fibroid. I will ask gynecology to see her. She will require a hysterectomy 2. It is perplexing to see the low platelet count and low white count. I do not have an explanation for this. A CBC and platelet count will be repeated and if this is persistent, then doing a bone marrow aspirate and biopsy would be appropriate. Usually when one sees iron deficiency anemia, you see a high platelet count and not a low platelet count. I will order B12 and folic acid, but I expect these to be normal as the bilirubin is normal. I spoke to her about the possibility of needing a bone marrow aspirate and biopsy. 3: She has no resources and is currently living in a fci. Will ask case management to see. Hopefully we can do everything she needs in the next few days while she is in the hospital. MD PJ Andrews/YASMANI/mauricio , 04:56 PM , 06:07 PM PAULIE
[2018-01-28] VITALS (8 sets, daily range): BP systolic 108–136; BP diastolic 57–80; PULSE 60–74; RESP 16–18; TEMP 98–98.7; O2SAT 99–100
[2018-01-28 03:17] LABS: AUTOMATED NEUTROPHIL # 2.7 TH/MM3 (1.8-7.7); BASOPHIL # 0.1 TH/MM3 (0-0.2); BASOPHIL % 1.2 % (0.0-2.0); EOSINOPHIL # 0.1 TH/MM3 (0-0.4); EOSINOPHIL % 1.6 % (0.0-4.0); HEMATOCRIT 23.6 % (35.0-46.0); HEMOGLOBIN 7.3 GM/DL (11.6-15.3); LYMPHOCYTE # 1.1 TH/MM3 (1.0-4.8); MEAN CORPUSCULAR HEMOGLOBIN 20.8 PG (27.0-34.0); MEAN CORPUSCULAR HGB CONC 31.1 % (32.0-36.0); MEAN PLATELET VOLUME 8.4 FL (7.0-11.0); MONO % 6.3 % (0.0-8.0); MONOCYTE # 0.3 TH/MM3 (0-0.9); NEUT % 64.9 % (16.0-70.0); PLATELET COUNT 48 TH/MM3 (150-450); RED BLOOD COUNT 3.52 MIL/MM3 (4.00-5.30); RED CELL DISTRIBUTION WIDTH 36.2 % (11.6-17.2); WHITE BLOOD COUNT 4.2 TH/MM3 (4.0-11.0)
[2018-01-28 03:39] LABS: C-REACTIVE PROTEIN LESS THAN 0.29 MG/DL (0.00-0.30); COMPLEMENT C4 18 MG/DL (10-40); IRON (FE) 338 MCG/DL (50-170)
[2018-01-28 03:40] LABS: HAPTOGLOBIN 62 MG/DL (30-200); OVALOCYTES 1+ (NORMAL)
[2018-01-28 03:46] LABS: RHEUMATOID FACTOR SCREEN NEGATIVE (NEGATIVE)
[2018-01-28 04:04] LABS: % SATURATION IRON PROFILE 90.8 % (20-50); FERRITIN 6 NG/ML (8-252); FOLATE 10.1 NG/ML (3.1-17.5); TOTAL IRON BINDING CAPACITY 372 MCG/DL (250-450)
[2018-01-28] MEDS: SODIUM CHLORIDE 0.9% FLUSH 10 ML FLUSH IV FLUSH SCH ×2 (09:00→22:00)
[2018-01-28] MEDS: DOCUSATE SODIUM 50 MG/SENNA 8.6 MG TAB PO SCH ×3 (09:00→22:05)
[2018-01-28 09:40] LABS: PROTHROMBIN TIME - PATIENT 10.1 SEC (9.8-11.6)
[2018-01-28 09:42] LABS: D-DIMER 0.39 MG/L FEU (0.00-0.50)
--- NOTE | 2018-01-28 10:36 | PD.ONC.PN ---
Subjective Subjective Remarks Afebrile overnight. Patient resting in bed in nad. feeling better today. denies dizziness. states she is hungry as she was fasting for procedure this AM. Objective Data Date Time Temp Pulse Resp B/P (MAP) Pulse Ox O2 Delivery O2 Flow Rate FiO2 01/28/18 08:00 98.1 64 16 108/63 (78) 100 01/28/18 04:07 60 01/28/18 04:00 98.5 74 16 118/63 (81) 100 01/28/18 01:20 98.1 66 16 118/62 100 01/28/18 00:00 98.7 72 16 120/61 (80) 100 01/27/18 23:55 66 01/27/18 22:35 98.3 73 17 121/62 100 01/27/18 22:20 98.1 73 17 110/58 100 01/27/18 20:00 98.4 75 16 118/61 100 01/27/18 20:00 98.4 75 16 118/61 (80) 100 01/27/18 18:15 98.8 72 16 138/71 100 01/27/18 17:59 98.8 70 18 127/70 100 01/27/18 16:00 97.9 90 15 124/57 (79) 100 01/27/18 15:04 01/27/18 14:29 98.7 75 17 111/61 100 01/27/18 14:08 98.8 76 16 113/56 100 01/27/18 13:52 85 12 117/57 (77) 98 Room Air 01/27/18 13:48 99 21 01/27/18 13:02 100 Room Air 01/27/18 13:02 71 16 117/57 (77) 100 Room Air 01/27/18 11:02 99.1 94 20 125/70 (88) 99 01/28/18 01/28/18 01/28/18 07:00 15:00 23:00 Intake Total 640 ml 0 ml Balance 640 ml 0 ml Result Diagram: 01/28/18 0242 01/27/18 1130 Laboratory Results Laboratory Tests Test 01/27/18 11:30 01/28/18 02:42 01/28/18 09:08 White Blood Count 2.1 TH/MM3 4.2 TH/MM3 Red Blood Count 2.35 MIL/MM3 3.52 MIL/MM3 Hemoglobin 3.0 GM/DL 7.3 GM/DL Hematocrit 11.9 % 23.6 % Mean Corpuscular Volume 50.7 FL 67.0 FL Mean Corpuscular Hemoglobin 12.9 PG 20.8 PG Mean Corpuscular Hemoglobin Concent 25.5 % 31.1 % Red Cell Distribution Width 28.7 % 36.2 % Platelet Count 79 TH/MM3 48 TH/MM3 Mean Platelet Volume 8.6 FL 8.4 FL Neutrophils (%) (Auto) 37.1 % 64.9 % Lymphocytes (%) (Auto) 46.1 % 26.0 % Monocytes (%) (Auto) 10.5 % 6.3 % Eosinophils (%) (Auto) 1.1 % 1.6 % Basophils (%) (Auto) 5.2 % 1.2 % Neutrophils # (Auto) 0.8 TH/MM3 2.7 TH/MM3 Lymphocytes # (Auto) 1.0 TH/MM3 1.1 TH/MM3 Monocytes # (Auto) 0.2 TH/MM3 0.3 TH/MM3 Eosinophils # (Auto) 0.0 TH/MM3 0.1 TH/MM3 Basophils # (Auto) 0.1 TH/MM3 0.1 TH/MM3 CBC Comment AUTO DIFF AUTO DIFF Differential Total Cells Counted 100 Neutrophils % (Manual) 30 % Lymphocytes % 58 % Monocytes % 8 % Eosinophils % 1 % Basophils % 3 % Neutrophils # (Manual) 0.6 TH/MM3 Differential Comment FINAL DIFF MANUAL AUTO DIFF CONFIRMED Platelet Estimate LOW LOW Platelet Morphology Comment NORMAL NORMAL Ovalocytes 1+ 1+ Reticulocyte Count 1.5 % Absolute Reticulocyte Count 36.7 MIL/L Blood Urea Nitrogen 8 MG/DL Creatinine 0.56 MG/DL Random Glucose 89 MG/DL Calcium Level 8.0 MG/DL Sodium Level 142 MEQ/L Potassium Level 3.9 MEQ/L Chloride Level 111 MEQ/L Carbon Dioxide Level 22.4 MEQ/L Anion Gap 9 MEQ/L Estimat Glomerular Filtration Rate 139 ML/MIN Total Bilirubin 0.4 MG/DL Direct Bilirubin 0.2 MG/DL Indirect Bilirubin 0.2 MG/DL Aspartate Amino Transf (AST/SGOT) 10 U/L Alanine Aminotransferase (ALT/SGPT) 12 U/L Alkaline Phosphatase 31 U/L Total Creatine Kinase 28 U/L Troponin I LESS THAN 0.02 NG/ML Total Protein 7.2 GM/DL 6.3 GM/DL Albumin 3.7 GM/DL Erythrocyte Sedimentation Rate 14 mm/hr Haptoglobin 62 MG/DL Iron Level 338 MCG/DL Total Iron Binding Capacity 372 MCG/DL Percent Iron Saturation 90.8 % Ferritin 6 NG/ML Lactate Dehydrogenase 84 U/L C-Reactive Protein LESS THAN 0.29 MG/DL Vitamin B12 Level 377 PG/ML Folate 10.1 NG/ML Rheumatoid Factor Screen NEGATIVE Rheumatoid Factor Titer IU/ML Complement C3 60 MG/DL Complement C4 18 MG/DL Prothrombin Time 10.1 SEC Prothromb Time International Ratio 1.0 RATIO Activated Partial Thromboplast Time 22.6 SEC D-Dimer Quantitative (PE/DVT) 0.39 MG/L FEU Imaging Studies Last 24 hours Impressions Chest X-Ray 01/27/18 1119 Signed Impressions: CONCLUSION: No acute cardiopulmonary disease. Administered Medications Medications (Trade) Dose Ordered Sig/Helga Route PRN Reason Start Time Stop Time Status Last Admin Dose Admin Sodium Chloride (NS Flush) 2 ml BID IV FLUSH 01/27/18 14:00 01/28/18 09:00 Objective Remarks GENERAL: Middle aged female, sitting up in chair next to bed in [facility]. SKIN: Warm and dry. HEAD: Normocephalic. EYES: No injection or drainage. NECK: Supple, trachea midline. CARDIOVASCULAR: Regular rate and rhythm RESPIRATORY: Breath sounds equal bilaterally. No accessory muscle use. GASTROINTESTINAL: Abdomen with mild distension, non tender to palpation. EXTREMITIES: No cyanosis NEUROLOGICAL: No obvious focal deficit. Awake, alert, and oriented x3. Assessment/Plan Assessment 47y/o female with anemia + thrombocytopenia Plan 1. severe anemia: obviously there is a component of bleeding causing this. however, iron studies are confusing, a ferritin of 6 + low MCV indicates iron deficiency however, the patient also has almost 90% saturation? very odd. Dr. Tillman planning to perform bone marrow biopsy and aspirate at bedside this evening. 2. thrombocytopenia: we would expect this to recover. not clear why the hgb improved but the platelet count decreased. could there be a component of ITP? may also be due to dilution. will check coags and D-dimer for possibility of DIC 3. vaginal bleeding: appreciate [employer] SUPERINTENDENT consult. patient will need hysterectomy. 4. if economic problems will preclude proper outpatient follow up, it might be prudent to perform any needed procedures inpatient. Attending Statement The exam, history, and the medical decision-making described in the above note were completed with the assistance of the mid-level provider. I reviewed and agree with the findings presented. I attest that I had a [id number] encounter with the patient on the same day, and personally performed and documented my assessment and findings in the medical record. Patient definitely deficient in iron with low ferritin, low mcv, and elevated RDW. Will give venofer 200 mg IV for three days and will start in the hospital. iron and TIBC confusing but does not negate the fact that she is iron deficient. thrombocytopenia unexpected and the platelet count should be elevated in the face of iron deficiency. This suggests ITP. She told the medical student she was HIV + and when I asked her she told me she is HIV negative. She will undergo repeat HIV testing as if she is HIV + this could explain the thrombocytopenia. will repeat cbc plat in am. no evidence of DIC. She has been unsuccessful for years in obtaining a Hysterectomy due to her social situation. If we are able to address the HIV status, thrombocytopenia, and anemia successfully there may be little reason to delay the inevitable hysterectomy and we could potentially spare her future transfusions of blood and iron. Delores Crocker January 28, 2018 10:36 Tay Tillman MD January 28, 2018 19:04
--- NOTE | 2018-01-28 13:38 | EKG ---
Date Performed: 01/27/2018 Time Performed: 11:26:51 PTAGE: 47 years EKG: Sinus rhythm MINIMAL VOLTAGE CRITERIA FOR LVH, CONSIDER NORMAL VARIANT MODERATE T-WAVE ABNORMALITY, CONSIDER LATE RAL ISCHEMIA ABNORMAL ECG PREVIOUS TRACING : 03/04/[address]-T changes persist and are somewhat changed. Cannot rule out ischemia. Clinical correlation is recommended. DOCTOR: Emigdio Judd Interpretating Date/Time 01/28/2018 13:37:51
--- NOTE | 2018-01-28 15:23 | PD.PN.STU ---
Subjective Remarks Ms Dominguez a 47 y F who does not have regular health care being followed for pancytopenia. She has a PMHx of anemia due to menorrhagia, uterine fibroid, and self-reported HIV positive testing. She presented to the ED yesterday feeling fatigued. Hgb was 3, WBC 2, and Plt 79 on admission. She receievd blood transfusion and IV iron. She today feels better and has no new complaints. She has some vaginal bleeding and on day 5 of her menstrual cycle, normal cycles last 5-6 days for her. Lately periods have been heavier than usual. She has some abdominal pain on right side, which she attributes to her uterine fibroid. She has had a nonproductive cough for the past 2 days and some rhinorrhea which has improved. Denies headache, fever, dizziness, fatigue, rashes, muscle aches, chest pain, SOB, abdominal pain, changes in bowel/urine habits, swelling Objective Vitals Vital Signs Date Time Temp Pulse Resp B/P (MAP) Pulse Ox O2 Delivery O2 Flow Rate FiO2 01/28/18 12:00 98.0 71 16 123/61 (81) 99 01/28/18 10:59 Nasal Cannula 01/28/18 08:00 98.1 64 16 108/63 (78) 100 01/28/18 04:07 60 01/28/18 04:00 98.5 74 16 118/63 (81) 100 01/28/18 01:20 98.1 66 16 118/62 100 01/28/18 00:00 98.7 72 16 120/61 (80) 100 01/27/18 23:55 66 01/27/18 22:35 98.3 73 17 121/62 100 01/27/18 22:20 98.1 73 17 110/58 100 01/27/18 20:00 98.4 75 16 118/61 100 01/27/18 20:00 98.4 75 16 118/61 (80) 100 01/27/18 18:15 98.8 72 16 138/71 100 01/27/18 17:59 98.8 70 18 127/70 100 01/27/18 16:00 97.9 90 15 124/57 (79) 100 01/27/18 15:04 I/O 01/27/18 01/27/18 01/27/18 01/28/1829/18 5/29/18 07:00 15:00 23:00 07:00 15:00 23:00 Intake Total 220 ml 1040 ml 640 ml 0 ml Balance 220 ml 1040 ml 640 ml 0 ml Intake Oral 200 ml 240 ml 240 ml IV Total 0 ml 0 ml Packed Cells 800 ml 400 ml Blood Product IV Normal Saline Flush 20 ml 0 ml # Voids 2 3 # Bowel Movements 0 0 # Sanitary Pads 2 Pads 2 Pads Result Diagram: 01/28/18 0242 01/27/18 1130 Other Results Vital Signs, 24 Hour Date Time Temp Pulse Resp B/P (MAP) Pulse Ox O2 Delivery O2 Flow Rate FiO2 01/28/18 12:00 98.0 71 16 123/61 (81) 99 01/28/18 10:59 Nasal Cannula 01/28/18 08:00 98.1 64 16 108/63 (78) 100 01/28/18 04:07 60 01/28/18 04:00 98.5 74 16 118/63 (81) 100 01/28/18 01:20 98.1 66 16 118/62 100 01/28/18 00:00 98.7 72 16 120/61 (80) 100 01/27/18 23:55 66 01/27/18 22:35 98.3 73 17 121/62 100 01/27/18 22:20 98.1 73 17 110/58 100 01/27/18 20:00 98.4 75 16 118/61 100 01/27/18 20:00 98.4 75 16 118/61 (80) 100 01/27/18 18:15 98.8 72 16 138/71 100 01/27/18 17:59 98.8 70 18 127/70 100 01/27/18 16:00 97.9 90 15 124/57 (79) 100 01/27/18 15:04 Allergies Coded Allergies No Known Allergies (Unverified01/26/18) Intake/Outtake 01/28/18 01/28/18 11:00 23:00 Intake Total 640 ml Balance 640 ml Laboratory Tests per Diane Test 01/28/18 02:42 Red Blood Count 3.52 MIL/MM3 White Blood Count 4.2 TH/MM3 Active Scripts Active Reported Ferrous Sulfate 325 Mg (65 Mg Iron) Tablet 325 Mg PO DAILY Objective Remarks pt is pleasant and cooperative, in no acute distress HEENT: normocephalic. no pallor noted Card: RRR. clear s1 and s2 Pulm: clear to auscultation Extremities: no edema A/P Assessment and Plan 47 y F with pancytopenia. PT and APTT WNL She will undergo a bone marrow aspiration at bedside this evening. await results for guidance Microcytic Anemia: Hgb 7.3 today, improved from 3 yesterday MCV 50->67 Obtain TSH, FT4, FT3 continue IV iron supplementation possibly due to menorrhagia, iron deficiency Repeat HH in the morning Transfuse if hgb<7 Thrombocytopenia 79->48 today recheck plt count in am. consider platelet transfusion consider ITP. treatment with steroids may be needed in platelets drop below 30 Neutropenia WBC 2.1->4.2 WNL, resolved HIV: Need to confirm with antibody test obtain CD4 count Fibroid uterus This could be managed surgically and potentially improve menorrhagia Pt also has a sore throat and it is known that viral entities can cause pancytopenia DVT prophylaxis not a candidate for chemical therapy due to pancytopenia pt should ambulate regularly Ismael Overton M3 January 28, 2018 15:23
--- NOTE | 2018-01-28 19:12 | HHI.PR ---
Subjective Remarks Patient denies cp/sob, dizziness. c/o having had some weight loss. upon questioning states she has tested positiove for HIV twice before but she never seeked treatment. Denies melena or hematochezia. He states that she does have heavy periods that she is currently having heavy bleeding with clots. Objective Vitals Vital Signs Date Time Temp Pulse Resp B/P (MAP) Pulse Ox O2 Delivery O2 Flow Rate FiO2 01/28/18 16:00 98.4 68 18 110/57 (74) 100 01/28/18 12:00 98.0 71 16 123/61 (81) 99 01/28/18 10:59 Nasal Cannula 01/28/18 08:00 98.1 64 16 108/63 (78) 100 01/28/18 04:07 60 01/28/18 04:00 98.5 74 16 118/63 (81) 100 01/28/18 01:20 98.1 66 16 118/62 100 01/28/18 00:00 98.7 72 16 120/61 (80) 100 01/27/18 23:55 66 01/27/18 22:35 98.3 73 17 121/62 100 01/27/18 22:20 98.1 73 17 110/58 100 01/27/18 20:00 98.4 75 16 118/61 100 01/27/18 20:00 98.4 75 16 118/61 (80) 100 I/O 01/27/18 01/27/18 01/27/18 01/28/18 01/28/18 01/28/18 07:00 15:00 23:00 07:00 15:00 23:00 Intake Total 220 ml 1040 ml 640 ml 0 ml 1800 ml Balance 220 ml 1040 ml 640 ml 0 ml 1800 ml Intake Oral 200 ml 240 ml 240 ml 1800 ml IV Total 0 ml 0 ml Packed Cells 800 ml 400 ml Blood Product IV Normal Saline Flush 20 ml 0 ml # Voids 2 3 5 # Bowel Movements 0 0 0 # Sanitary Pads 2 Pads 2 Pads Result Diagram: 01/28/18 0242 01/27/18 1130 Imaging Last 72 hours Impressions Chest X-Ray 01/27/18 1119 Signed Impressions: CONCLUSION: No acute cardiopulmonary disease. Chest CT 01/27/18 0000 Signed Impressions: CONCLUSION: 1. Mild scoliosis. Incidental aberrant right subclavian artery. No acute findi ngs on chest CT. Abdomen/Pelvis CT 01/27/18 0000 Signed Impressions: CONCLUSION: 1. Markedly enlarged lobulated uterus measuring up to 17.8 cm in length most c haracteristic of a fibroid uterus. There is fluid in the vaginal cavity and tra ce free fluid. Objective Remarks Very thin female nad Clear lungs BL no inguinal cervical, axilary lymphadenopathy Lungs are clear to auscultation bilaterally Abdomen soft, nontender nondistended There is no edema in bilateral extremities No petechiae, ecchymosis or bruising observed on the skin exam. A/P Problem List: (1) Leukopenia ICD Code: D72.819 - Decreased white blood cell count, unspecified Status: Acute (2) Thrombocytopenia ICD Code: D69.6 - Thrombocytopenia, unspecified Status: Acute (3) Anemia ICD Code: D64.9 - Anemia, unspecified Assessment and Plan 1. Leukopenia Likely etiology. WBC now much improved within normal range. Continue to monitor CBC. 2. Iron deficiency anemia Ferritin is very low. Iron and percent saturation very elevated. Suspect this is due that laboratory sample was obtained after or perhaps during blood transfusion. Suspect iron deficiency anemia is due acute on chronic blood loss due to mental myalgia secondary to uterine fibroids. Patient presented with a severe hemoglobin of 2.1. Status post transfusion of multiple units of 3 units of packed red blood cells. Discussed the case with Dr. Tillman who will order IV iron. We will continue to monitor hemoglobin and transfuse if hemoglobin less than 7, symptomatic anemia or active bleeding. 3. Thrombocytopenia Unclear etiology. Differential diagnosis at this point include ITP, secondary to HIV, hepatitis C virus, DIC ruled out, hemolysis ruled out with normal bilirubins. Drug-induced also less likely since patient states she was not taking any medications. Patient also stated in front of me and the medical student that she has tested positive for HIV twice in the hospital and in outpatient clinic in [place] but has never received treatment for it. Certainly HIV could be the causative of thrombocytopenia. I will order HIV screen and RNA PCR. We will also check hepatitis profile. 4. Fibroid uterus/menorrhagia. Patient's acute blood loss likely secondary to menorrhagia due to fibroid uterus. Appreciate PRESSURE SEALER AND TESTER recommendations. At this point the patient is HIV negative and platelets continue to improve then possibly the best course of action for this patient would be to have hysterectomy done during this admission. The patient is homeless and has shown up with critically low hemoglobin values. This was discussed at length with Dr. Tillman who will make his own recommendations. Discharge Planning Continue to monitor on the medical floor. Ramin Power MD January 28, 2018 19:12
[2018-01-28] MEDS: IRON SUCROSE INJ 200 MG in SODIUM CHLORIDE 0.9% INJ 100 ML IV SCH (22:00)
[2018-01-28 22:16] LABS: ALB/GLOB RATIO (SPE) 1.64 (1.39-2.23)
[2018-01-29] VITALS (11 sets, daily range): BP systolic 109–122; BP diastolic 56–66; PULSE 62–83; RESP 14–18; TEMP 97.2–98.6; O2SAT 97–100
[2018-01-29 07:47] LABS: BASOPHIL # 0.1 TH/MM3 (0-0.2); BASOPHIL % 2.6 % (0.0-2.0); EOSINOPHIL # 0.1 TH/MM3 (0-0.4); EOSINOPHIL % 2.7 % (0.0-4.0); HEMATOCRIT 22.2 % (35.0-46.0); LYMPH % 23.5 % (9.0-44.0); LYMPHOCYTE # 0.7 TH/MM3 (1.0-4.8); MEAN CELL VOLUME 67.2 FL (80.0-100.0); MEAN CORPUSCULAR HEMOGLOBIN 20.5 PG (27.0-34.0); MEAN CORPUSCULAR HGB CONC 30.5 % (32.0-36.0); MEAN PLATELET VOLUME 8.4 FL (7.0-11.0); MONO % 8.1 % (0.0-8.0); MONOCYTE # 0.3 TH/MM3 (0-0.9); NEUT % 63.1 % (16.0-70.0); PLATELET COUNT 48 TH/MM3 (150-450); RED CELL DISTRIBUTION WIDTH 36.6 % (11.6-17.2); WHITE BLOOD COUNT 3.2 TH/MM3 (4.0-11.0)
[2018-01-29 07:51] LABS: HEMOGLOBIN 6.8 GM/DL (11.6-15.3)
[2018-01-29 08:12] LABS: ALBUMIN 3.2 GM/DL (3.4-5.0); AST (GOT) 11 U/L (15-37); BICARBONATE 25.4 MEQ/L (21.0-32.0); BLOOD UREA NITROGEN 8 MG/DL (7-18); CALCIUM 8.3 MG/DL (8.5-10.1); CHLORIDE 108 MEQ/L (98-107); CREATININE 0.45 MG/DL (0.50-1.00); GLOMERULAR FILTRATION RATE 179 ML/MIN (>89); GLUCOSE,RANDOM 88 MG/DL (74-106); SODIUM (NA) 140 MEQ/L (136-145)
[2018-01-29 08:13] LABS: ALT (GPT) 10 U/L (10-53)
[2018-01-29 08:15] LABS: ALKALINE PHOSPHATASE 32 U/L (45-117); TOTAL BILIRUBIN ADULT 0.4 MG/DL (0.2-1.0); TOTAL PROTEIN 6.6 GM/DL (6.4-8.2)
--- NOTE | 2018-01-29 08:42 | PD.ONC.PN ---
Subjective Subjective Remarks tolerated iv iron well and will receive iron today and tomorrow. having menstrual bleeding. Objective Data Date Time Temp Pulse Resp B/P (MAP) Pulse Ox O2 Delivery O2 Flow Rate FiO2 01/29/18 04:00 98.1 62 16 109/60 (76) 99 01/29/18 00:00 98.3 71 18 117/62 (80) 100 01/28/18 20:00 98.5 72 18 136/80 (98) 100 01/28/18 16:00 98.4 68 18 110/57 (74) 100 01/28/18 12:00 98.0 71 16 123/61 (81) 99 01/28/18 10:59 Nasal Cannula 01/29/18 01/29/18 01/29/18 06:59 14:59 22:59 Intake Total 100 ml Balance 100 ml Result Diagram: 01/29/18 0727 01/29/18 07 Laboratory Results Laboratory Tests Test 01/28/18 09:08 01/29/18 07:27 Prothrombin Time 10.1 SEC Prothromb Time International Ratio 1.0 RATIO Activated Partial Thromboplast Time 22.6 SEC D-Dimer Quantitative (PE/DVT) 0.39 MG/L FEU White Blood Count 3.2 TH/MM3 Red Blood Count 3.30 MIL/MM3 Hemoglobin 6.8 GM/DL Hematocrit 22.2 % Mean Corpuscular Volume 67.2 FL Mean Corpuscular Hemoglobin 20.5 PG Mean Corpuscular Hemoglobin Concent 30.5 % Red Cell Distribution Width 36.6 % Platelet Count 48 TH/MM3 Mean Platelet Volume 8.4 FL Neutrophils (%) (Auto) 63.1 % Lymphocytes (%) (Auto) 23.5 % Monocytes (%) (Auto) 8.1 % Eosinophils (%) (Auto) 2.7 % Basophils (%) (Auto) 2.6 % Neutrophils # (Auto) 2.0 TH/MM3 Lymphocytes # (Auto) 0.7 TH/MM3 Monocytes # (Auto) 0.3 TH/MM3 Eosinophils # (Auto) 0.1 TH/MM3 Basophils # (Auto) 0.1 TH/MM3 CBC Comment AUTO DIFF Blood Urea Nitrogen 8 MG/DL Creatinine 0.45 MG/DL Random Glucose 88 MG/DL Total Protein 6.6 GM/DL Albumin 3.2 GM/DL Calcium Level 8.3 MG/DL Alkaline Phosphatase 32 U/L Aspartate Amino Transf (AST/SGOT) 11 U/L Alanine Aminotransferase (ALT/SGPT) 10 U/L Total Bilirubin 0.4 MG/DL Sodium Level 140 MEQ/L Potassium Level 4.0 MEQ/L Chloride Level 108 MEQ/L Carbon Dioxide Level 25.4 MEQ/L Anion Gap 7 MEQ/L Estimat Glomerular Filtration Rate 179 ML/MIN Administered Medications Medications (Trade) Dose Ordered Sig/Helga Route PRN Reason Start Time Stop Time Status Last Admin Dose Admin Sodium Chloride (NS Flush) 2 ml BID IV FLUSH 01/27/18 14:00 01/28/18 22:00 Acetaminophen (Tylenol) 650 mg Q6H PRN PO PAIN SCALE 1 TO 2 01/27/18 14:00 01/28/18 21:59 Senna/Docusate Sodium (Nevaeh-Colace) 1 tab BID PO 01/27/18 21:00 01/28/18 22:05 Iron Sucrose 200 mg/Sodium Chloride 110 ml @ 110 mls/hr DAILY IV 01/28/18 20:00 01/30/18 09:59 01/28/18 22:00 Objective Remarks GENERAL: slender SKIN: Warm and dry. HEAD: Normocephalic. EYES: No scleral icterus. No injection or drainage. NECK: Supple, trachea midline. No JVD or lymphadenopathy. LYMPHATIC: No adenopathy. CARDIOVASCULAR: Regular rate and rhythm without murmurs. RESPIRATORY: Breath sounds equal bilaterally. No accessory muscle use. GASTROINTESTINAL: Abdomen soft, non-tender, nondistended. mass in right lower quadrant. EXTREMITIES: No cyanosis, or edema. MUSCULOSKELETAL: Adequate muscle tone. NEUROLOGICAL: No obvious focal deficit. Awake, alert, and oriented x3. PSYCHIATRIC: Appropriate mood and affect; insight and judgment normal. Assessment/Plan Assessment 47y/o female with anemia + thrombocytopenia Plan 1. will transfuse 1 unit and continue IV iron. check cbc plat in am and I will contact Dr. Carlson about the possibility of doing hysterectomy while in the hospital as her lack of resources have have already delayed this event for almost a decade and may continue to do this after discharge. If platelets need to be higher for surgery we should be able to deal with this with steroids if felt to be ITP or a platelet transfusion. Await HIV testing. 2: I spoke with Dr. Franz who is covering for Dr. Carlson. Dr. Carlson and Dr. Franz do not do three dimensional map modeler surgery but he was kind enough to volunteer to find me someone who will do the surgery to help resolve this issue. Tay Tillman MD January 29, 2018 08:42
[2018-01-29] MEDS ORDERED: diphenhydrAMINE HCL 50 MG/ML VIAL IV ONE (08:45)
[2018-01-29] MEDS ORDERED: ACETAMINOPHEN 325 MG TAB PO ONE (08:45)
[2018-01-29] MEDS: SODIUM CHLORIDE 0.9% FLUSH 10 ML FLUSH IV FLUSH SCH ×2 (09:00→20:54)
[2018-01-29] MEDS: IRON SUCROSE INJ 200 MG in SODIUM CHLORIDE 0.9% INJ 100 ML IV SCH (09:22)
[2018-01-29] MEDS: DOCUSATE SODIUM 50 MG/SENNA 8.6 MG TAB PO SCH ×2 (09:22→20:54)
[2018-01-29 09:46] LABS: BANDS 6 % (0-6); BASOPHILS 1 % (0-2); LYMPHOCYTES 14 % (9-44); MONOCYTES 4 % (0-8); NEUTROPHIL # MANUAL DIFF 2.6 TH/MM3 (1.8-7.7); POLYS (SEG NEUTROPHILS) 75 % (16-70)
[2018-01-29 09:47] LABS: KERATOCYTES OCC (NORMAL)
--- NOTE | 2018-01-29 11:22 | PD.PN.STU ---
Subjective Remarks 47 y F being followed for pancytopenia Ms Dominguez at this time has no new complaints. She is on day 6 of her menstrual period, still bleeding but flow has lightened up some Her cold like symptoms, which consist of a nonproductive cough and slightly runny nose, are better but still present. She denies fever, headache, dizziness, SOB, chest pain, abdominal pain, changes in bowel/urine habits, swelling. No blood in stool or urine per pt. She is ambulating well Objective Vitals Vital Signs Date Time Temp Pulse Resp B/P (MAP) Pulse Ox O2 Delivery O2 Flow Rate FiO2 01/29/18 11:01 97.8 83 14 112/57 99 01/29/18 08:00 98.6 64 16 111/56 (74) 100 01/29/18 04:00 98.1 62 16 109/60 (76) 99 01/29/18 00:00 98.3 71 18 117/62 (80) 100 01/28/18 20:00 98.5 72 18 136/80 (98) 100 01/28/18 16:00 98.4 68 18 110/57 (74) 100 01/28/18 12:00 98.0 71 16 123/61 (81) 99 I/O 01/28/18 01/28/18 01/28/18 01/29/18 01/29/18 01/29/18 07:00 15:00 23:00 07:00 15:00 23:00 Intake Total 640 ml 0 ml 1800 ml 100 ml Balance 640 ml 0 ml 1800 ml 100 ml Intake Oral 240 ml 1800 ml IV Total 0 ml 100 ml Packed Cells 400 ml # Voids 3 5 # Bowel Movements 0 0 # Sanitary Pads 2 Pads 2 Pads 2 Pads Result Diagram: 01/29/1872601/29/18726 Other Results Vital Signs, 24 Hour Date Time Temp Pulse Resp B/P (MAP) Pulse Ox O2 Delivery O2 Flow Rate FiO2 01/29/18 11:01 97.8 83 14 112/57 99 01/29/18 08:00 98.6 64 16 111/56 (74) 100 01/29/18 04:00 98.1 62 16 109/60 (76) 99 01/29/18 00:00 98.3 71 18 117/62 (80) 100 5/29/18 20:00 98.5 72 18 136/80 (98) 100 01/28/18 16:00 98.4 68 18 110/57 (74) 100 01/28/18 12:00 98.0 71 16 123/61 (81) 99 Allergies Coded Allergies No Known Allergies (Unverified01/26/18) Intake/Outtake 01/29/18 01/29/18 11:00 23:00 Intake Total 100 ml Balance 100 ml Laboratory Tests per Diane Test 01/29/18 07:27 Blood Urea Nitrogen 8 MG/DL Creatinine 0.45 MG/DL Random Glucose 88 MG/DL Total Protein 6.6 GM/DL Albumin 3.2 GM/DL Calcium Level 8.3 MG/DL Alkaline Phosphatase 32 U/L Aspartate Amino Transf (AST/SGOT) 11 U/L Alanine Aminotransferase (ALT/SGPT) 10 U/L Total Bilirubin 0.4 MG/DL Sodium Level 140 MEQ/L Potassium Level 4.0 MEQ/L Chloride Level 108 MEQ/L Carbon Dioxide Level 25.4 MEQ/L Red Blood Count 3.30 MIL/MM3 White Blood Count 3.2 TH/MM3 Active Scripts Active Reported Ferrous Sulfate 325 Mg (65 Mg Iron) Tablet 325 Mg PO DAILY Objective Remarks pt appears comfortable and is in no acute distress. HEENT: normocephalic, no pallor noted. Pulm: lungs clear to auscultation. Card: RRR. normal s1 and s2 Extremities: no edema noted A/P Assessment and Plan 47 y F with pancytopenia. PT and APTT WNL Bone marrow aspiration was decided to be withheld to further explore infectious causes of abnormalities since pt admitted to testing positive for HIV in the past Microcytic Anemia: Hgb down to 6.7 this morning, was 7.3 yesterday. Hgb was 3 on admission. Transfuse 2 units of PRBCs MCV 50->67 Obtain TSH, FT4, FT3 continue IV iron supplementation possibly due to menorrhagia, iron deficiency Repeat HH in the morning Transfuse if hgb<7 Thrombocytopenia Plts remain at 47 recheck plt count in am. consider platelet transfusion consider ITP. treatment with steroids may be needed in platelets drop below 30 Neutropenia WBCs has trended back down to 3.2 we will continue to monitor HIV: Need to confirm with antibody test. Awaiting reflex obtain CD4 count Consult ID if true positive This could explain many of lab abnormalities detected Fibroid uterus This could be managed surgically and potentially improve menorrhagia Pt also has a sore throat and it is known that viral entities can cause pancytopenia DVT prophylaxis not a candidate for chemical therapy due to pancytopenia pt should ambulate regularly Ismael Overton M3 January 29, 2018 11:22
--- NOTE | 2018-01-29 16:19 | HHI.PR ---
Subjective Remarks Deferred entry, the patient was seen earlier at 9:30 AM. The patient denies chest pain or shortness of breath. Hemoglobin down to 6.8. Patient states vaginal bleeding is actually slower today. Objective Vitals Vital Signs Date Time Temp Pulse Resp B/P (MAP) Pulse Ox O2 Delivery O2 Flow Rate FiO2 01/29/18 15:44 97.2 75 14 112/57 98 01/29/18 15:13 98.3 14 109/57 97 01/29/18 12:00 97.3 81 17 112/57 (75) 99 01/29/18 11:30 98.0 76 14 111/59 99 01/29/18 11:18 99 01/29/18 11:01 97.8 83 14 112/57 99 01/29/18 08:00 98.6 64 16 111/56 (74) 100 01/29/18 04:00 98.1 62 16 109/60 (76) 99 01/29/18 00:00 98.3 71 18 117/62 (80) 100 01/28/18 20:00 98.5 72 18 136/80 (98) 100 I/O 01/28/18 01/28/18 01/28/18 01/29/18 01/29/18 01/29/18 07:00 15:00 23:00 07:00 15:00 23:00 Intake Total 640 ml 0 ml 1800 ml 100 ml 420 ml 10 ml Balance 640 ml 0 ml 1800 ml 100 ml 420 ml 10 ml Intake Oral 240 ml 1800 ml IV Total 0 ml 100 ml Packed Cells 400 ml 400 ml Blood Product IV Normal Saline Flush 20 ml 10 ml # Voids 3 5 # Bowel Movements 0 0 # Sanitary Pads 2 Pads 2 Pads 2 Pads Result Diagram: 01/29/1872601/29/18726 Imaging Last Impressions Chest X-Ray 01/27/18 1119 Signed Impressions: CONCLUSION: No acute cardiopulmonary disease. Chest CT 01/27/18 0000 Signed Impressions: CONCLUSION: 1. Mild scoliosis. Incidental aberrant right subclavian artery. No acute findi ngs on chest CT. Abdomen/Pelvis CT 01/27/18 0000 Signed Impressions: CONCLUSION: 1. Markedly enlarged lobulated uterus measuring up to 17.8 cm in length most c haracteristic of a fibroid uterus. There is fluid in the vaginal cavity and tra ce free fluid. Objective Remarks Very thin female nad Clear lungs BL no inguinal cervical, axilary lymphadenopathy Lungs are clear to auscultation bilaterally Abdomen soft, nontender nondistended There is no edema in bilateral extremities No petechiae, ecchymosis or bruising observed on the skin exam. Medications and IVs Current Medications Medications (Trade) Dose Ordered Sig/Helga Route Start Time Stop Time Status Last Admin (NS Flush) 2 ml UNSCH PRN IV FLUSH 01/27/18 13:45 (NS Flush) 2 ml BID IV FLUSH 01/27/18 14:00 01/29/18 09:00 (Tylenol) 650 mg Q4H PRN PO 01/27/18 14:00 (Zofran Odt) 4 mg Q6H PRN PO 01/27/18 14:00 (Reglan Inj) 5 mg Q6H PRN IV PUSH 01/27/18 14:00 (Ambien) 5 mg HS PRN PO 01/27/18 14:00 (Tylenol) 650 mg Q6H PRN PO 01/27/18 14:00 01/28/18 21:59 (Percocet 5-325 Mg) 1 tab Q6H PRN PO 01/27/18 14:00 (Percocet 10-325 Mg) 1 tab Q6H PRN PO 01/27/18 14:00 (Morphine Inj) 2 mg Q3H PRN IV PUSH 01/27/18 14:00 (Morphine Inj) 4 mg Q3H PRN IV PUSH 01/27/18 14:00 (Morphine Inj) 4 mg Q3H PRN IV PUSH 01/27/18 14:00 (Narcan Inj) 0.4 mg UNSCH PRN IV PUSH 01/27/18 13:45 (Nevaeh-Colace) 1 tab BID PO 01/27/18 21:00 01/29/18 09:22 (Milk Of Magnesia Liq) 30 ml Q12H PRN PO 01/27/18 13:45 (Senokot) 17.2 mg Q12H PRN PO 01/27/18 14:00 (Dulcolax Supp) 10 mg DAILY PRN RECTAL 01/27/18 14:00 (Lactulose Liq) 30 ml DAILY PRN PO 01/27/18 14:00 (Tylenol) 650 mg Q4H PRN PO 01/27/18 14:00 (Benadryl) 25 mg Q4H PRN PO 01/27/18 14:00 Iron Sucrose 200 mg/Sodium Chloride 110 ml @ 110 mls/hr DAILY IV 01/28/18 20:00 01/30/18 09:59 01/29/18 09:22 A/P Problem List: (1) Leukopenia ICD Code: D72.819 - Decreased white blood cell count, unspecified Status: Acute (2) Thrombocytopenia ICD Code: D69.6 - Thrombocytopenia, unspecified Status: Acute (3) Anemia ICD Code: D64.9 - Anemia, unspecified Assessment and Plan 1. Leukopenia Likely etiology. WBC now much improved within normal range. Continue to monitor CBC. 01/29 WBC down again to 3.2. Due to monitor CBC. Hematology following. 2. Acute blood loss anemia/iron deficiency anemia. Ferritin is very low. Iron and percent saturation very elevated. Suspect this is due that laboratory sample was obtained after or perhaps during blood transfusion. Suspect iron deficiency anemia is due acute on chronic blood loss due to mental myalgia secondary to uterine fibroids. Patient presented with a severe hemoglobin of 2.1. Status post transfusion of multiple units of 3 units of packed red blood cells. Discussed the case with Dr. Tillman who will order IV iron. We will continue to monitor hemoglobin and transfuse if hemoglobin less than 7, symptomatic anemia or active bleeding. 01/29 hemoglobin down to 6.8. Transfuse 2 units of packed red blood cells. Discussed with Dr. Tillman from hematology. 3. Thrombocytopenia Unclear etiology. Differential diagnosis at this point include ITP, secondary to HIV, hepatitis C virus, DIC ruled out, hemolysis ruled out with normal bilirubins. Drug-induced also less likely since patient states she was not taking any medications. Patient also stated in front of me and the medical student that she has tested positive for HIV twice in the hospital and in outpatient clinic in [place] but has never received treatment for it. Certainly HIV could be the causative of thrombocytopenia. I will order HIV screen and RNA PCR. We will also check hepatitis profile. 01/29 hepatitis profile nonreactive. HIV test pending. Follow-up hematology recommendations. Platelets are stable. Continue to monitor CBC. 4. Fibroid uterus/menorrhagia. Patient's acute blood loss likely secondary to menorrhagia due to fibroid uterus. Appreciate DRIVER LICENSE TECHNICIAN recommendations. At this point the patient is HIV negative and platelets continue to improve then possibly the best course of action for this patient would be to have hysterectomy done during this admission. The patient is homeless and has shown up with critically low hemoglobin values. This was discussed at length with Dr. Tillman who will make his own recommendations. Discharge Planning Continue to monitor on the medical floor. Awaiting HIV test. Ramin Power MD January 29, 2018 16:19
--- NOTE | 2018-01-29 17:57 | PD.CONS ---
HPI Chief Complaint ANEMIA, UTERINE FIBROID OF AT LEAST 8 YEARS DURATION Date Seen: January 29, 2018 Time Seen: 17:38 Travel History International Travel<30 Days: No Contact w/Intl Traveler<30Days: No Known Affected Area: No History of Present Illness HPI 47 YO ISSUES WITH FIBROID UTERUS AT LEAST [address] ISSUES WITH PANCYTOPENIA NO PRIOR SURGERY EXCEPT BTL PERIODS LAST 6-8 DAYS NO RECENT BX OF ENDOMETRIUM History Past Medical History Narrative Medical PANCYTOPENIA Past Surgical History Narrative Surgical BTL Family History Family History: Negative Social History Alcohol Use: No Tobacco Use: No Substance Abuse: No Allergies-Medications (Allergen,Severity, Reaction): Coded Allergies: No Known Allergies (Unverified , 01/26/18) Home Meds Reported Medications Ferrous Sulfate (Ferrous Sulfate) 325 Mg (65 Mg Iron) Tablet, 325 MG PO DAILY for Nutritional Supplement, #30 TAB 0 Refills 01/26/18 Physical Exam Vital Signs Date Time Temp Pulse Resp B/P (MAP) Pulse Ox O2 Delivery O2 Flow Rate FiO2 01/29/18 16:00 98.3 71 14 109/57 (74) 97 01/29/18 15:44 97.2 75 14 112/57 98 01/29/18 15:13 98.3 14 109/57 97 01/29/18 12:00 97.3 81 17 112/57 (75) 99 01/29/18 11:30 98.0 76 14 111/59 99 01/29/18 11:18 99 01/29/18 11:01 97.8 83 14 112/57 99 01/29/18 08:00 98.6 64 16 111/56 (74) 100 01/29/18 04:00 98.1 62 16 109/60 (76) 99 01/29/18 00:00 98.3 71 18 117/62 (80) 100 01/28/18 20:00 98.5 72 18 136/80 (98) 100 Narrative GENERAL: Well-nourished, well-developed patient. SKIN: Warm and dry. HEAD: Normocephalic and atraumatic. EYES: No scleral icterus. No injection or drainage. ENT: No nasal drainage noted. Mucous membranes pink. Airway patent. NECK: Supple, trachea midline. No JVD. Fundal Height: [20 WEEKS] EXTREMITIES: No cyanosis or edema. BACK: Nontender without obvious deformity. No CVA tenderness. NEUROLOGICAL: Awake and alert. Motor and sensory grossly within normal limits. Five out of 5 muscle strength in all muscle groups. Normal speech. Data Data Vital Signs Reviewed: Yes Orders Orders Hiv Antibody Screen (01/28/18 18:25) Hiv Pcr Rna By Bdna (01/28/18 18:25) Iron Sucrose Inj (Venofer Inj) (01/28/18 20:00) Hepatitis Profile (01/29/18 06:00) Comprehensive Metabolic Panel (01/29/18 06:00) Red Blood Cells (Rbc) (01/29/18 08:25) Acetaminophen (Tylenol) (01/29/18 08:45) Diphenhydramine Inj (Benadryl Inj) (01/29/18 08:45) Labs Laboratory Tests Test 01/29/18 07:27 White Blood Count 3.2 Red Blood Count 3.30 Hemoglobin 6.8 Hematocrit 22.2 Mean Corpuscular Volume 67.2 Mean Corpuscular Hemoglobin 20.5 Mean Corpuscular Hemoglobin Concent 30.5 Red Cell Distribution Width 36.6 Platelet Count 48 Mean Platelet Volume 8.4 Neutrophils (%) (Auto) 63.1 Lymphocytes (%) (Auto) 23.5 Monocytes (%) (Auto) 8.1 Eosinophils (%) (Auto) 2.7 Basophils (%) (Auto) 2.6 Neutrophils # (Auto) 2.0 Lymphocytes # (Auto) 0.7 Monocytes # (Auto) 0.3 Eosinophils # (Auto) 0.1 Basophils # (Auto) 0.1 CBC Comment AUTO DIFF Differential Total Cells Counted 100 Neutrophils % (Manual) 75 Band Neutrophils % 6 Lymphocytes % 14 Monocytes % 4 Basophils % 1 Neutrophils # (Manual) 2.6 Differential Comment FINAL DIFF MANUAL Platelet Estimate LOW Platelet Morphology Comment ENLARGED Keratocytes OCC Blood Urea Nitrogen 8 Creatinine 0.45 Random Glucose 88 Total Protein 6.6 Albumin 3.2 Calcium Level 8.3 Alkaline Phosphatase 32 Aspartate Amino Transf (AST/SGOT) 11 Alanine Aminotransferase (ALT/SGPT) 10 Total Bilirubin 0.4 Sodium Level 140 Potassium Level 4.0 Chloride Level 108 Carbon Dioxide Level 25.4 Anion Gap 7 Estimat Glomerular Filtration Rate 179 Hepatitis A IgM Antibody NONREACTIVE Hepatitis B Surface Antigen NONREACTIVE Hepatitis B Core IgM Antibody NONREACTIVE Hepatitis C IgG Antibody NONREACTIVE HIV (1&2) Ab and P24 Ag, 4th Gener REFLEX MDM Medical Record Reviewed: Yes Plan PT WOULD LIKELY BENEFIT FROM [facility] 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 WHILE IN HOUSE, TO DECREASE BLEEDING MAY CONSIDER LYSTEDA 650 X 2 TID FOR 5 DAYS MAY ALSO WANT TO CONSIDER UTERINE ARTERY EMBOLIZATION BY INTERVENTIONAL RADIOLOGY FEEL FREE TO CONTACT ME DIRECTLY [phone] WITH ANY QUESTIONS OR CONCERNS Admitting diagnosis: Pancytopenia, Severe Diagnosis: Fibroid uterus, anemia, hypermenorrhea Condition: Brent Branch MD January 29, 2018 17:57
[2018-01-30] VITALS: BP 117/62; PULSE 71; RESP 20; TEMP 98.5; O2SAT 99
[2018-01-30 04:00] VITALS: BP 109/62; PULSE 65; RESP 20; TEMP 98.2; O2SAT 100
[2018-01-30 08:00] VITALS: BP 117/59; PULSE 70; RESP 17; TEMP 98.1; O2SAT 100
[2018-01-30] MEDS: DOCUSATE SODIUM 50 MG/SENNA 8.6 MG TAB PO SCH ×2 (09:00→20:39)
[2018-01-30] MEDS: IRON SUCROSE INJ 200 MG in SODIUM CHLORIDE 0.9% INJ 100 ML IV SCH (09:33)
[2018-01-30] MEDS: SODIUM CHLORIDE 0.9% FLUSH 10 ML FLUSH IV FLUSH SCH ×2 (09:33→20:38)
[2018-01-30 11:25] LABS: BASOPHIL % 0.7 % (0.0-2.0); EOSINOPHIL # 0.2 TH/MM3 (0-0.4); EOSINOPHIL % 3.1 % (0.0-4.0); HEMATOCRIT 30.6 % (35.0-46.0); HEMOGLOBIN 10.1 GM/DL (11.6-15.3); LYMPH % 16.6 % (9.0-44.0); LYMPHOCYTE # 0.9 TH/MM3 (1.0-4.8); MEAN CELL VOLUME 72.1 FL (80.0-100.0); MEAN CORPUSCULAR HEMOGLOBIN 23.9 PG (27.0-34.0); MEAN CORPUSCULAR HGB CONC 33.1 % (32.0-36.0); MONO % 7.2 % (0.0-8.0); MONOCYTE # 0.4 TH/MM3 (0-0.9); NEUT % 72.4 % (16.0-70.0); PLATELET COUNT 44 TH/MM3 (150-450); RED BLOOD COUNT 4.25 MIL/MM3 (4.00-5.30); RED CELL DISTRIBUTION WIDTH 33.5 % (11.6-17.2); WHITE BLOOD COUNT 5.5 TH/MM3 (4.0-11.0)
[2018-01-30 11:43] LABS: ALBUMIN 3.3 GM/DL (3.4-5.0); AST (GOT) 11 U/L (15-37); BICARBONATE 23.3 MEQ/L (21.0-32.0); BLOOD UREA NITROGEN 5 MG/DL (7-18); CALCIUM 8.4 MG/DL (8.5-10.1); CHLORIDE 108 MEQ/L (98-107); CREATININE 0.47 MG/DL (0.50-1.00); GLOMERULAR FILTRATION RATE 170 ML/MIN (>89); GLUCOSE,RANDOM 87 MG/DL (74-106); SODIUM (NA) 140 MEQ/L (136-145)
[2018-01-30 11:44] LABS: ALT (GPT) 11 U/L (10-53)
[2018-01-30 11:54] LABS: ALKALINE PHOSPHATASE 36 U/L (45-117); TOTAL BILIRUBIN ADULT 0.6 MG/DL (0.2-1.0); TOTAL PROTEIN 6.8 GM/DL (6.4-8.2)
[2018-01-30 12:00] VITALS: BP 120/55; PULSE 69; RESP 16; TEMP 97.7; O2SAT 100
[2018-01-30 12:21] LABS: OVALOCYTES 1+ (NORMAL)
--- NOTE | 2018-01-30 15:14 | PD.PN.STU ---
Subjective Remarks 47 y f being followed due to pancytopenia She has no new concerns. Her cold like symptoms are still present. they consist of a dry nonproductive cough and some runny nose. the sxs come and go. no reported worsening since admission. she denies fever, chills, headache, swelling. She is on day 7 of period and her bleeding is nail welter but still present No SOB, chest pain, changes in bowel/urine habits. no blood in stool visualized Objective Vitals Vital Signs Date Time Temp Pulse Resp B/P (MAP) Pulse Ox O2 Delivery O2 Flow Rate FiO2 01/30/18 12:00 97.7 69 16 120/55 (76) 100 01/30/18 08:00 98.1 70 17 117/59 (78) 100 01/30/18 04:00 98.2 65 20 109/62 (78) 100 01/30/18 00:00 98.5 71 20 117/62 (80) 99 01/29/18 20:00 98.2 72 16 122/66 (84) 98 01/29/18 16:00 98.3 71 14 109/57 (74) 97 01/29/18 15:44 97.2 75 14 112/57 98 01/29/18 15:13 98.3 14 109/57 97 I/O 01/29/18 01/29/18 01/29/18 01/30/18 01/30/18 01/30/18 07:00 15:00 23:00 07:00 15:00 23:00 Intake Total 100 ml 420 ml 1490 ml 240 ml Balance 100 ml 420 ml 1490 ml 240 ml Intake Oral 1080 ml 240 ml IV Total 100 ml Packed Cells 400 ml 400 ml Blood Product IV Normal Saline Flush 20 ml 10 ml # Voids 6 # Bowel Movements 0 Result Diagram: 01/30/18 1112 01/30/18 1112 Other Results Vital Signs, 24 Hour Date Time Temp Pulse Resp B/P (MAP) Pulse Ox O2 Delivery O2 Flow Rate FiO2 01/30/18 12:00 97.7 69 16 120/55 (76) 100 01/30/18 08:00 98.1 70 17 117/59 (78) 100 01/30/18 04:00 98.2 65 20 109/62 (78) 100 01/30/18 00:00 98.5 71 20 117/62 (80) 99 01/29/18 20:00 98.2 72 16 122/66 (84) 98 01/29/18 16:00 98.3 71 14 109/57 (74) 97 01/29/18 15:44 97.2 75 14 112/57 98 01/29/18 15:13 98.3 14 109/57 97 Allergies Coded Allergies No Known Allergies (Unverified01/26/18) Intake/Outtake 01/30/18 01/30/18 11:00 23:00 Intake Total 240 ml Balance 240 ml Laboratory Tests per Diane Test 01/30/18 11:12 Blood Urea Nitrogen 5 MG/DL Creatinine 0.47 MG/DL Random Glucose 87 MG/DL Total Protein 6.8 GM/DL Albumin 3.3 GM/DL Calcium Level 8.4 MG/DL Alkaline Phosphatase 36 U/L Aspartate Amino Transf (AST/SGOT) 11 U/L Alanine Aminotransferase (ALT/SGPT) 11 U/L Total Bilirubin 0.6 MG/DL Sodium Level 140 MEQ/L Potassium Level 4.3 MEQ/L Chloride Level 108 MEQ/L Carbon Dioxide Level 23.3 MEQ/L Red Blood Count 4.25 MIL/MM3 White Blood Count 5.5 TH/MM3 Active Scripts Active Reported Ferrous Sulfate 325 Mg (65 Mg Iron) Tablet 325 Mg PO DAILY Objective Remarks Pt is well appearing and in no acute distress HEENT: normocephalic. mucus membranes appear pink and moist. no erythema noted in the posterior pharynx. there is some mild edema in the nasal turbinates There is no lymphadenopathy noted Pul: lungs clear to auscultation. Cardiac: RRR. normal s1 and s2 Extremities: no edema noted Medications and IVs Current Medications Medications (Trade) Dose Ordered Sig/Helga Route Start Time Stop Time Status Last Admin (NS Flush) 2 ml UNSCH PRN IV FLUSH 01/27/18 13:45 (NS Flush) 2 ml BID IV FLUSH 01/27/18 14:00 01/30/18 09:33 (Tylenol) 650 mg Q4H PRN PO 01/27/18 14:00 (Zofran Odt) 4 mg Q6H PRN PO 01/27/18 14:00 (Reglan Inj) 5 mg Q6H PRN IV PUSH 01/27/18 14:00 (Ambien) 5 mg HS PRN PO 01/27/18 14:00 (Tylenol) 650 mg Q6H PRN PO 01/27/18 14:00 01/28/18 21:59 (Percocet 5-325 Mg) 1 tab Q6H PRN PO 01/27/18 14:00 (Percocet 10-325 Mg) 1 tab Q6H PRN PO 01/27/18 14:00 (Morphine Inj) 2 mg Q3H PRN IV PUSH 01/27/18 14:00 (Morphine Inj) 4 mg Q3H PRN IV PUSH 01/27/18 14:00 (Morphine Inj) 4 mg Q3H PRN IV PUSH 01/27/18 14:00 (Narcan Inj) 0.4 mg UNSCH PRN IV PUSH 01/27/18 13:45 (Nevaeh-Colace) 1 tab BID PO 01/27/18 21:00 01/29/18 09:22 (Milk Of Magnesia Liq) 30 ml Q12H PRN PO 01/27/18 13:45 (Senokot) 17.2 mg Q12H PRN PO 01/27/18 14:00 (Dulcolax Supp) 10 mg DAILY PRN RECTAL 01/27/18 14:00 (Lactulose Liq) 30 ml DAILY PRN PO 01/27/18 14:00 (Tylenol) 650 mg Q4H PRN PO 01/27/18 14:00 (Benadryl) 25 mg Q4H PRN PO 01/27/18 14:00 A/P Assessment and Plan 47 y F with pancytopenia. PT and APTT WNL Bone marrow aspiration was decided to be withheld to further explore infectious causes of abnormalities since pt admitted to testing positive for HIV in the past Microcytic Anemia: Hgb back up to 10.1 from 6.7 yesterday morning, post transfusion. Hgb was 3 on admission. MCV 72.7 TSH WNL at .948 continue IV iron supplementation possibly due to menorrhagia, iron deficiency Repeat HH in the morning Transfuse if hgb<7 Thrombocytopenia Plts slightly decreased to 44 from 48 yesterday recheck plt count in am. consider ITP. treatment with steroids may be needed in platelets drop below 30 Neutropenia WBCs has trended back down to 3.2 we will continue to monitor HIV: Need to confirm with antibody test. Awaiting reflex obtain CD4 count Consult ID if true positive This could explain many of lab abnormalities detected Fibroid uterus This could be managed surgically and potentially improve menorrhagia. Waiting to cosult surgeon with expertise in this sara Pt also has a sore throat and it is known that viral entities can cause pancytopenia. Treat cold symptomatically at this point DVT prophylaxis not a candidate for chemical therapy due to pancytopenia pt should ambulate regularly Ismael Overton M3 January 30, 2018 15:14
[2018-01-30 16:00] VITALS: BP 111/64; PULSE 72; RESP 17; TEMP 98.3; O2SAT 100
--- NOTE | 2018-01-30 16:53 | HHI.PR ---
Subjective Remarks denies cp/sob Bleeding is improving Objective Vitals Vital Signs Date Time Temp Pulse Resp B/P (MAP) Pulse Ox O2 Delivery O2 Flow Rate FiO2 01/30/18 16:00 98.3 72 17 111/64 (80) 100 01/30/18 12:00 97.7 69 16 120/55 (76) 100 01/30/18 08:00 98.1 70 17 117/59 (78) 100 01/30/18 04:00 98.2 65 20 109/62 (78) 100 01/30/18 00:00 98.5 71 20 117/62 (80) 99 01/29/18 20:00 98.2 72 16 122/66 (84) 98 I/O 01/29/18 01/29/18 01/29/18 01/30/18 01/30/18 01/30/18 07:00 15:00 23:00 07:00 15:00 23:00 Intake Total 100 ml 420 ml 1490 ml 240 ml Balance 100 ml 420 ml 1490 ml 240 ml Intake Oral 1080 ml 240 ml IV Total 100 ml Packed Cells 400 ml 400 ml Blood Product IV Normal Saline Flush 20 ml 10 ml # Voids 6 # Bowel Movements 0 Result Diagram: 01/30/18 1112 01/30/18 1112 Imaging Last Impressions Chest X-Ray 01/27/18 1119 Signed Impressions: CONCLUSION: No acute cardiopulmonary disease. Chest CT 01/27/18 0000 Signed Impressions: CONCLUSION: 1. Mild scoliosis. Incidental aberrant right subclavian artery. No acute findi ngs on chest CT. Abdomen/Pelvis CT 01/27/18 0000 Signed Impressions: CONCLUSION: 1. Markedly enlarged lobulated uterus measuring up to 17.8 cm in length most c haracteristic of a fibroid uterus. There is fluid in the vaginal cavity and tra ce free fluid. Objective Remarks Very thin female nad Clear lungs BL no inguinal cervical, axilary lymphadenopathy Lungs are clear to auscultation bilaterally Abdomen soft, nontender nondistended There is no edema in bilateral extremities No petechiae, ecchymosis or bruising observed on the skin exam. A/P Problem List: (1) Leukopenia ICD Code: D72.819 - Decreased white blood cell count, unspecified Status: Acute (2) Thrombocytopenia ICD Code: D69.6 - Thrombocytopenia, unspecified Status: Acute (3) Anemia ICD Code: D64.9 - Anemia, unspecified Assessment and Plan 1. Leukopenia Likely etiology. WBC now much improved within normal range. Continue to monitor CBC. 01/29 WBC down again to 3.2. Due to monitor CBC. Hematology following. 01/30 WBC improved. 5.5. monitor cbc. 2. Acute blood loss anemia/iron deficiency anemia. Ferritin is very low. Iron and percent saturation very elevated. Suspect this is due that laboratory sample was obtained after or perhaps during blood transfusion. Suspect iron deficiency anemia is due acute on chronic blood loss due to mental myalgia secondary to uterine fibroids. Patient presented with a severe hemoglobin of 2.1. Status post transfusion of multiple units of 3 units of packed red blood cells. Discussed the case with Dr. Tillman who will order IV iron. We will continue to monitor hemoglobin and transfuse if hemoglobin less than 7, symptomatic anemia or active bleeding. 01/29 hemoglobin down to 6.8. Transfuse 2 units of packed red blood cells. Discussed with Dr. Tillman from hematology. 01/30 hb better. Improved to 10.1. monitor cbc 3. Thrombocytopenia Unclear etiology. Differential diagnosis at this point include ITP, secondary to HIV, hepatitis C virus, DIC ruled out, hemolysis ruled out with normal bilirubins. Drug-induced also less likely since patient states she was not taking any medications. Patient also stated in front of me and the medical student that she has tested positive for HIV twice in the hospital and in outpatient clinic in [place] but has never received treatment for it. Certainly HIV could be the causative of thrombocytopenia. I will order HIV screen and RNA PCR. We will also check hepatitis profile. 01/30 hepatitis profile nonreactive. HIV test pending. Follow-up hematology recommendations. Platelets are stable. Continue to monitor CBC. 4. Fibroid uterus/menorrhagia. Patient's acute blood loss likely secondary to menorrhagia due to fibroid uterus. Appreciate BIOCHEMIST recommendations. At this point the patient is HIV negative and platelets continue to improve then possibly the best course of action for this patient would be to have hysterectomy done during this admission. The patient is homeless and has shown up with critically low hemoglobin values. This was discussed at length with Dr. Tillman who will make his own recommendations. 01/30 appreciate BIOCHEMIST recommendations. Patient will need hysterectomy but this is non urgent as per BIOCHEMIST. Will reffer to [facility] outpatient. Discharge Planning Continue to monitor on the medical floor. Awaiting HIV test. Ramin Power MD January 30, 2018 16:53
[2018-01-30 19:53] LABS: ERYTHROPOIETIN GREATER THAN 4656.0 mIU/mL (2.6-18.5)
[2018-01-30 20:35] VITALS: BP 121/64; PULSE 70; RESP 18; TEMP 99.1; O2SAT 96
[2018-01-31 00:16] VITALS: BP 120/60; PULSE 73; RESP 16; TEMP 97.8; O2SAT 100
[2018-01-31 03:51] LABS: PARIETAL CELL TOTAL AUTOABS LESS THAN 20.0 U
[2018-01-31 04:49] VITALS: BP 112/64; PULSE 68; RESP 16; TEMP 98.9; O2SAT 96
[2018-01-31 08:00] VITALS: BP 107/65; PULSE 83; RESP 18; TEMP 98.2; O2SAT 98
[2018-01-31 08:26] LABS: METHYLMALONIC ACID 0.06 nmol/mL (<=0.40)
[2018-01-31] MEDS: DOCUSATE SODIUM 50 MG/SENNA 8.6 MG TAB PO SCH (09:00)
[2018-01-31] MEDS: SODIUM CHLORIDE 0.9% FLUSH 10 ML FLUSH IV FLUSH SCH (09:15)
--- NOTE | 2018-01-31 09:43 | PD.ONC.PN ---
Subjective Subjective Remarks minimal menstrual bleeding Objective Data Date Time Temp Pulse Resp B/P (MAP) Pulse Ox O2 Delivery O2 Flow Rate FiO2 01/31/18 08:00 98.2 83 18 107/65 (79) 98 01/31/18 04:49 98.9 68 16 112/64 (80) 96 01/31/18 00:16 97.8 73 16 120/60 (80) 100 01/30/18 20:35 99.1 70 18 121/64 (83) 96 01/30/18 16:00 98.3 72 17 111/64 (80) 100 01/30/18 12:00 97.7 69 16 120/55 (76) 100 01/31/18 01/31/18 01/31/18 07:00 15:00 23:00 Intake Total 480 ml Balance 480 ml Result Diagram: 01/30/18 1112 01/30/18 1112 Laboratory Results Laboratory Tests Test 01/30/18 11:12 White Blood Count 5.5 TH/MM3 Red Blood Count 4.25 MIL/MM3 Hemoglobin 10.1 GM/DL Hematocrit 30.6 % Mean Corpuscular Volume 72.1 FL Mean Corpuscular Hemoglobin 23.9 PG Mean Corpuscular Hemoglobin Concent 33.1 % Red Cell Distribution Width 33.5 % Platelet Count 44 TH/MM3 Mean Platelet Volume 9.0 FL Neutrophils (%) (Auto) 72.4 % Lymphocytes (%) (Auto) 16.6 % Monocytes (%) (Auto) 7.2 % Eosinophils (%) (Auto) 3.1 % Basophils (%) (Auto) 0.7 % Neutrophils # (Auto) 4.0 TH/MM3 Lymphocytes # (Auto) 0.9 TH/MM3 Monocytes # (Auto) 0.4 TH/MM3 Eosinophils # (Auto) 0.2 TH/MM3 Basophils # (Auto) 0.0 TH/MM3 CBC Comment AUTO DIFF Differential Comment AUTO DIFF CONFIRMED Platelet Estimate LOW Platelet Morphology Comment NORMAL Ovalocytes 1+ Blood Urea Nitrogen 5 MG/DL Creatinine 0.47 MG/DL Random Glucose 87 MG/DL Total Protein 6.8 GM/DL Albumin 3.3 GM/DL Calcium Level 8.4 MG/DL Alkaline Phosphatase 36 U/L Aspartate Amino Transf (AST/SGOT) 11 U/L Alanine Aminotransferase (ALT/SGPT) 11 U/L Total Bilirubin 0.6 MG/DL Sodium Level 140 MEQ/L Potassium Level 4.3 MEQ/L Chloride Level 108 MEQ/L Carbon Dioxide Level 23.3 MEQ/L Anion Gap 9 MEQ/L Estimat Glomerular Filtration Rate 170 ML/MIN Thyroid Stimulating Hormone 3rd Gen 0.948 uIU/ML Administered Medications Medications (Trade) Dose Ordered Sig/Helga Route PRN Reason Start Time Stop Time Status Last Admin Dose Admin Sodium Chloride (NS Flush) 2 ml BID IV FLUSH 01/27/18 14:00 01/31/18 09:15 Acetaminophen (Tylenol) 650 mg Q6H PRN PO PAIN SCALE 1 TO 2 01/27/18 14:00 01/28/18 21:59 Senna/Docusate Sodium (Nevaeh-Colace) 1 tab BID PO 01/27/18 21:00 01/29/18 09:22 Objective Remarks GENERAL: slender but not ill SKIN: Warm and dry. HEAD: Normocephalic. EYES: No scleral icterus. No injection or drainage. NECK: Supple, trachea midline. No JVD or lymphadenopathy. LYMPHATIC: No adenopathy. CARDIOVASCULAR: Regular rate and rhythm without murmurs. RESPIRATORY: Breath sounds equal bilaterally. No accessory muscle use. GASTROINTESTINAL: right pelvic mass EXTREMITIES: No cyanosis, or edema. MUSCULOSKELETAL: Adequate muscle tone. NEUROLOGICAL: No obvious focal deficit. Awake, alert, and oriented x3. PSYCHIATRIC: Appropriate mood and affect; insight and judgment normal. Assessment/Plan Assessment 1: HIV antibodies + and case discussed with ID. the patient needs to go to the HIV clinic 2:anemia- has done well with transfusions and IV iron. 3: suspect that thrombocytopenia due to HIV and would not tx with steroids. The treatment at present is the tx of her HIV status 4: surgery for uterine fibroid can be delayed. other events take precedent. Plan 1: ref to HIV clinic 2 Iron sulfate 325 mg po once daily 3: will see in 4 weeks with cbc plat and visit 4: situation reviewed with patient and explained that she will require tx of HIV (PCR is pending). She understands the importance of tx. Tay Tillman MD Jan 31, 2018 09:43
[2018-01-31] MEDS ORDERED: FERR325T18 PO (10:14)
[2018-01-31] MEDS ORDERED: DOCU100C15 PO (10:15)
--- NOTE | 2018-01-31 10:18 | HHI.DCPOC ---
Discharge Care Plan Diagnosis: (1) HIV positive (2) Thrombocytopenia (3) Leukopenia (4) Anemia (5) Hypermenorrhea (6) Fibroid uterus Goals to Promote Your Health * To prevent worsening of your condition and complications * To maintain your health at the optimal level Directions to Meet Your Goals Take your medications as prescribed Follow your dietary instruction Follow activity as directed Keep your appointments as scheduled Take your immunizations and boosters as scheduled If your symptoms worsen call your PCP, if no PCP go to Urgent Care Center or Emergency Room Smoking is Dangerous to Your Health. Avoid second hand smoke Call the 24-hour hour crisis hotline for domestic abuse at Ramin Power MD Jan 31, 2018 10:18
--- NOTE | 2018-01-31 10:25 | HHI.DS ---
Discharge Summary Admission Date January 27, 2018 at 13:46 Discharge Date: Jan 31, 2018 Admitting Diagnosis Pancytopenia, Severe (1) Leukopenia ICD Code: D72.819 - Decreased white blood cell count, unspecified Diagnosis: Principal Status: Acute (2) Thrombocytopenia ICD Code: D69.6 - Thrombocytopenia, unspecified Diagnosis: Principal Status: Acute (3) Anemia ICD Code: D64.9 - Anemia, unspecified Diagnosis: Principal Brief History - From Admission Patient is a 47-year-old -[place] female, Who was seen in the emergency department and found to have a hemoglobin of 3 will be transfused and will consult hematology oncology. Patient had Hemoccult of stool that was negative per ER physician. Patient denies any history other than heavy periods and some questionable history of possible ovarian cyst. Currently is not taking any medications other than maybe some iron States that her periods tend TO last 5 days and are heavy 4 out of the 5 days CBC/BMP: 01/30/18 1112 01/30/18 1112 Significant Findings Laboratory Tests Test 01/29/18 07:27 01/30/18 11:12 White Blood Count 3.2 TH/MM3 (4.0-11.0) Red Blood Count 3.30 MIL/MM3 (4.00-5.30) Hemoglobin 6.8 GM/DL (11.6-15.3) 10.1 GM/DL (11.6-15.3) Hematocrit 22.2 % (35.0-46.0) 30.6 % (35.0-46.0) Mean Corpuscular Volume 67.2 FL (80.0-100.0) 72.1 FL (80.0-100.0) Mean Corpuscular Hemoglobin 20.5 PG (27.0-34.0) 23.9 PG (27.0-34.0) Mean Corpuscular Hemoglobin Concent 30.5 % (32.0-36.0) Red Cell Distribution Width 36.6 % (11.6-17.2) 33.5 % (11.6-17.2) Platelet Count 48 TH/MM3 (150-450) 44 TH/MM3 (150-450) Monocytes (%) (Auto) 8.1 % (0.0-8.0) Basophils (%) (Auto) 2.6 % (0.0-2.0) Lymphocytes # (Auto) 0.7 TH/MM3 (1.0-4.8) 0.9 TH/MM3 (1.0-4.8) Neutrophils % (Manual) 75 % (16-70) Platelet Estimate LOW (NORMAL) LOW (NORMAL) Platelet Morphology Comment ENLARGED (NORMAL) Keratocytes OCC (NORMAL) Creatinine 0.45 MG/DL (0.50-1.00) 0.47 MG/DL (0.50-1.00) Albumin 3.2 GM/DL (3.4-5.0) 3.3 GM/DL (3.4-5.0) Calcium Level 8.3 MG/DL (8.5-10.1) 8.4 MG/DL (8.5-10.1) Alkaline Phosphatase 32 U/L (45-117) 36 U/L (45-117) Aspartate Amino Transf (AST/SGOT) 11 U/L (15-37) 11 U/L (15-37) Chloride Level 108 MEQ/L (98-107) 108 MEQ/L (98-107) HIV (1&2) Ab and P24 Ag, 4th Gener REFLEX (NONREACTIVE) Neutrophils (%) (Auto) 72.4 % (16.0-70.0) Ovalocytes 1+ (NORMAL) Blood Urea Nitrogen 5 MG/DL (7-18) PE at Discharge Very thin female nad Clear lungs BL no inguinal cervical, axilary lymphadenopathy Lungs are clear to auscultation bilaterally Abdomen soft, nontender nondistended There is no edema in bilateral extremities No petechiae, ecchymosis or bruising observed on the skin exam. Pt Condition on Discharge: Stable Discharge Disposition: Discharge Home Discharge Time: > 30 minutes Discharge Instructions DIET: Follow Instructions for: As Tolerated, No Restrictions Activities you can perform: Regular-No Restrictions Follow up Referrals: Appointment for Follow Up - 1 Week with health department [facility] PCP Follow-up - 2 Weeks with [facility] New Medications: Docusate Sodium (Docusate Sodium) 100 Mg Cap 100 MG PO BID PRN for CONSTIPATION, #60 CAP 0 Refills Ferrous Sulfate (Ferrous Sulfate) 325 Mg (65 Mg Iron) Tablet 325 MG PO TIDPC for Nutritional Supplement, #90 TAB 0 Refills Discontinued Medications: Ferrous Sulfate (Ferrous Sulfate) 325 Mg (65 Mg Iron) Tablet 325 MG PO DAILY for Nutritional Supplement, #30 TAB 0 Refills Ramin Power MD Jan 31, 2018 10:25
[2018-01-31 18:27] LABS: ANA PATTERN DIFFUSE
== END 2018-01-31 13:39 | disposition home or self-care (01) | DRG 977 ==
LOC: NEPC 10:55 → NEDA 13:46 → N07B 15:09
PROVIDERS: ADMIT Hospitalist; ATTEND Hospitalist
PROC: 30233N1 Transfusion of Nonautologous Red Blood Cells into Peripheral Vein, Percutaneous Approach (ICD-10-PCS; principal; 2018-01-27)
DX: D69.6 Thrombocytopenia, unspecified (principal); B20 Human immunodeficiency virus [HIV] disease; D62 Acute posthemorrhagic anemia; D25.9 Leiomyoma of uterus, unspecified; D72.819 Decreased white blood cell count, unspecified; N92.0 Excessive and frequent menstruation with regular cycle; D50.9 Iron deficiency anemia, unspecified
CPT/HCPCS: 36430; 71046; 71260; 74177; 80048; 80053; 80074; 80076; 82550; 82607; 82668; 82728; 82746; 82747; 83010; 83090; 83516; 83540; 83550; 83615; 83921; 84165; 84443; 84484; 85007; 85025; 85027; 85044; 85379; 85610; 85652; 85730; 86038; 86039; 86140; 86160; 86340; 86430; 86850; 86880; 86900; 86901; 86920; 87389; 87536; 93005; G0475; J1200; J1756; J7050; P9016; Q9967